=== PATIENT | female | born 1990 | race Caucasian/White ===

== ENCOUNTER 2019-01-26 19:44 | Emergency (ER) | payer OTHER ==
[2019-01-26] MEDS ORDERED: ONDANSETRON 4 MG/2 ML VIAL IVPUSH ONE (20:15)
--- NOTE | 2019-01-26 20:15 | PDOC ---
Rapid Medical Evaluation Time Seen by Provider: 01/26/19 20:12 Medical Evaluation: Allergies Allergy/AdvReac Type Severity Reaction Status Date / Time No Known Drug Allergies Allergy Verified 09/10/16 06:00 01/26/19 20:12 I performed a brief in-person evaluation of this patient. Chief complaint: Vomiting x several days, unable to tolerate fluids. No pv bleeding. , LMP 12/01. Pertinent physical exam findings: No abdominal tenderness. I have ordered the following: Basic labs, Zofran, Pepcid, IVF. Patient will proceed to the ED for further evaluation. Discharge Disposition - Diagnosis Hyperemesis - Referrals - Patient Instructions - Post Discharge Activity
[2019-01-26 20:16] VITALS: TEMP 98.2; BMI 26.9
[2019-01-26] MEDS ORDERED: FAMOTIDINE 20 MG/50 ML IVPB 20 MG in PREMIX 50 IVPB ONE (20:16)
[2019-01-26] MEDS ORDERED: SODIUM CHLORIDE 1,000 ML IV STA (20:16)
--- NOTE | 2019-01-26 20:49 | PDOC ---
History of Present Illness - General Chief Complaint: Nausea/Vomiting Stated Complaint: 2 MONTHS PERGNANT VOMITING Time Seen by Provider: 01/26/19 20:12 - History of Present Illness Initial Comments: 01/26/19 22:04 28F with no pmh, 2 month by LMP presents to the ed for 3 weeks of nausea/vomiting. Saw her OBGYN who prescribed unknown medication that the patient couldn't afford. LMP was 12/01/18. Patient denies headache, lightheadedness. Denies fever, chills. Denies chest pain, shortness of breath. Denies diarrhea, abdominal pain. Allergies: OB: Viola Montenegro Past History - Past Medical History Allergies/Adverse Reactions: Allergies Allergy/AdvReac Type Severity Reaction Status Date / Time No Known Drug Allergies Allergy Verified 01/27/19 00:22 Home Medications: Ambulatory Orders Vit Calc,Iron,Folic [ Vitamins] 1 each PO DAILY 09/10/16 Anemia: No Asthma: Yes Cancer: No Cardiac Disorders: No CVA: No COPD: No CHF: No Dementia: No Diabetes: No GI Disorders: No Disorders: No HTN: No Hypercholesterolemia: No Liver Disease: No Seizures: No Thyroid Disease: No - Surgical History Abdominal Surgery: No Appendectomy: No Cardiac Surgery: No Cholecystectomy: No Lung Surgery: No Neurologic Surgery: No Orthopedic Surgery: No - Reproductive History (#): 4 Para: 1 Therapeutic (s) & number: No Spontaneous : 2 - Immunization History Immunization Up to Date: Yes - Suicide/Smoking/Psychosocial Hx Smoking History: Never smoked Have you smoked in the past 12 months: No Hx Alcohol Use: No Drug/Substance Use Hx: No Substance Use Type: None Hx Substance Use Treatment: No Review of Systems - Review of Systems Able to Perform ROS?: Yes Is the patient limited Cypriot proficient: No Constitutional: No: Symptoms Reported HEENTM: No: Symptoms Reported Respiratory: No: Symptoms reported Cardiac (ROS): No: Symptoms Reported ABD/GI: Yes: See HPI : No: Symptoms Reported Musculoskeletal: No: Symptoms Reported Integumentary: No: Symptoms Reported All Other Systems: Reviewed and Negative *Physical Exam - Vital Signs Last Vital Signs Temp Pulse Resp BP Pulse Ox 98.2 F 129 H 20 105/84 98 01/26/19 20:13 01/26/19 20:13 01/26/19 20:13 01/26/19 20:13 01/26/19 20:13 - Physical Exam General Appearance: Yes: Nourished, Appropriately Dressed. No: Apparent Distress HEENT: positive: EOMI, LIVE, Normal ENT Inspection, Scleral Icterus (R), Scleral Icterus (L) Respiratory/Chest: positive: Lungs Clear, Normal Breath Sounds. negative: Chest Tender, Respiratory Distress Cardiovascular: positive: Regular Rhythm, S1, S2, Tachycardia Gastrointestinal/Abdominal: positive: Normal Bowel Sounds, Tender (URQ), Hepatomegaly Musculoskeletal: positive: Normal Inspection. negative: CVA Tenderness Integumentary: positive: Normal Color, Dry, Warm Neurologic: positive: Fully Oriented, Alert, Normal Mood/Affect, Normal Response , Motor Strength 02/11 ED Treatment Course - LABORATORY CBC & Chemistry Diagram: 01/26/19 20:00 01/26/19 20:00 Medical Decision Making - Medical Decision Making 01/26/19 22:08 28F 2 month , with vomiting, jaundice, elevated wbc, elevated liver enzymes and total bilirubin. - Hyperemesis gravidarum: Consistent with continuous vomiting and time of onset. Abnormal liver chemistries abnormal in 50% of patient with ALT higher than AST however bilirubin is usually normal and rarely exeeds 4. - Preeclampsia/HELPP: abdominal pain and elevated uric acid and liver enzymes are consistent with diagnosis but patient is not hypertensive (85% of cases) and usually onset is in 3rd trimester. Also and more importantly, platelets are WNL. - Intrahepatic cholestasis of : Patient does not exhibit pruritus which is the cardinal sign however she does have elevated bilirubin, liver enzymes and wbc. . - Acute fatty liver of : Consistent with signs and symptoms of nausea , vomiting and abdominal pain, elevated liver enzymes,Elevated uric acid, WBC but doesn't have decreased platelets or elevated ammonia. We will obtain ultrasound to confirm IUP and gallbladder US to r/o stones. 01/26/19 23:17 TVUS: viable IUP, 8 weeks old. GB US: inspissated gallbladder with sludge, completely opaque. Biliary sludge is common in and consistent with the patient's symptoms. Will consult GI. 01/26/19 23:21 Elevated PT/INR, elevated uric acid, negative ammonia and lipase Unclear diagnosis will multiple hepatic disease features. Spoke to Dr. John who suspected a passed gallstone. Recommended patient be transferred to facility able to care for high-risk . Patient chose [facility]. Spoke to ORALIA Valles attending at [facility]. Patient will be transferred ER to ER. *DC/Admit/Observation/Transfer Diagnosis at time of Disposition: Hyperemesis - Discharge Dispostion Disposition: TRANSFER ACUTE CARE/OTHER HOSP Condition at time of disposition: Guarded Decision to Admit order: No - Referrals Referrals: Viola Montenegro CNM [Primary Care Provider] - - Patient Instructions - Post Discharge Activity - Transfer to Acute Care Facility Receiving Facility: [facility].
[2019-01-26] MEDS ORDERED: PYRIDOXINE HCL 100 MG/1 ML VIAL IM ONE (20:55)
[2019-01-26] MEDS ORDERED: METOCLOPRAMIDE HCL INJECTION 10 MG/2 ML VIAL IVPUSH ONE (20:55)
[2019-01-26 20:56] LABS: BASO % 0.5 % (0-2.0); EOS % 0.4 % (0-4.5); HEMOGLOBIN 15.1 GM/dL (10.7-15.3); LYMPH % 12.8 % (8-40); MCH 28.2 pg (25.7-33.7); MCHC 34.3 g/dl (32.0-36.0); MEAN CELL VOLUME 82.2 fl (80-96); MONO % 9.1 % (3.8-10.2); NEUT % 77.2 % (42.8-82.8); PLATELET COUNT 345 K/MM3 (134-434); RBC 5.35 M/mm3 (3.60-5.2); RDW 13.1 % (11.6-15.6); WHITE BLOOD COUNT 13.5 K/mm3 (4.0-10.0)
[2019-01-26] MEDS ORDERED: METOCLOPRAMIDE HCL INJECTION 10 MG/2 ML VIAL ONE (21:12)
[2019-01-26] MEDS ORDERED: FAMOTIDINE 20 MG/50 ML IVPB 20 MG/50 ML MG IVPB ONE (21:12)
[2019-01-26 21:38] LABS: ALBUMIN 4.4 g/dl (3.4-5.0); ALK PHOS 93 U/L (45-117); ANION GAP 14 MMOL/L (8-16); BILIRUBIN,TOTAL 6.7 mg/dL (0.2-1); BLOOD UREA NITROGEN 14 mg/dL (7-18); CALCIUM 10.1 mg/dL (8.5-10.1); CHLORIDE 97 mmol/L (98-107); CO2 23 mmol/L (21-32); CREATININE 0.8 mg/dL (0.55-1.3); GLUCOSE,RANDOM 92 mg/dL (74-106); SGOT/AST 202 U/L (15-37); SGPT/ALT 397 U/L (13-61); SODIUM 134 mmol/L (136-145); TOT PROT 8.8 g/dl (6.4-8.2)
[2019-01-26 21:52] LABS: URINE APPEARANCE CLEAR; URINE BACTERIA 271.2 /hpf (NEGATIVE); URINE BILIRUBIN 3+ (NEGATIVE); URINE CASTS 17 /lpf (0-8); URINE COLOR DK YELLOW; URINE GLUCOSE (UA) NEGATIVE (NEGATIVE); URINE KETONE 4+ (NEGATIVE); URINE LEUK ESTERASE 1+ (NEGATIVE); URINE NITRITE POSITIVE (NEGATIVE); URINE PROTEIN 4+ (NEGATIVE); URINE RBC 3 /hpf (0-4); URINE WBC 7 /hpf (0-5)
--- NOTE | 2019-01-26 23:06 | PDOC ---
Documentation entered by Dirk Robledo SCRIBE, acting as scribe for Justin Watson MD. Justin Watson MD: This documentation has been prepared by the Venkat riggs Daniel, SCRIBE, under my direction and personally reviewed by me in its entirety. I confirm that the documentation accurately reflects all work, treatment, procedures, and medical decision making performed by me. Attending Attestation - Resident Resident Name: Daniel Lopes - ED Attending Attestation I have performed the following: I have examined & evaluated the patient, The case was reviewed & discussed with the resident, I agree w/resident's findings & plan, Exceptions are as noted - HPI HPI: 01/26/19 20:57 The patient is a 28 year old female, , @ 8 weeks by LMP, with a past medical history of asthma here today for evaluation of vomiting. She reports that she has had nausea and vomiting for the past 3 weeks. Endorses upper abdominal pain associated with the vomiting. Denies lower abdominal pain or cramps. Denies vaginal discharge/bleeding. Denies F/C. Pt also notes that her eyes have become yellow. Denies any rashes. Pt saw her OB who prescribed nausea medication that she has not filled. Patient denies headache, lightheadedness. Denies fever, chills. Denies chest pain, shortness of breath. Denies diarrhea. Allergies: OB: Viola Montenegro - Physicial Exam PE: 01/26/19 22:28 "GENERAL: Awake, alert, and fully oriented, in no acute distress. HEAD: No signs of trauma EYES: +sceral icterus, PERRLA, EOMI, ENT: Auricles normal inspection, hearing grossly normal, nares patent, oropharynx clear without exudates. Moist mucosa NECK: Nontender, no stepoffs, Normal ROM, supple, no lymphadenopathy, JVD, or masses LUNGS: Breath sounds equal, clear to auscultation bilaterally. No wheezes, and no crackles HEART: Regular rate and rhythm, normal S1 and S2, no murmurs, rubs or gallops ABDOMEN: + RUQ TTP, normoactive bowel sounds. No guarding, no rebound. No masses EXTREMITIES: Normal range of motion, no edema. No clubbing or cyanosis. No cords, erythema, or tenderness NEUROLOGICAL: Cranial nerves II through XII intact. 5/5 strength and sensation in all extremities, Normal speech, normal gait, normal cerebellar function SKIN: Warm, Dry, normal turgor, no rashes or lesions noted. - Medical Decision Making 01/26/19 22:28 28 F with N/V, abdominal pain, and jaundice. Will need to evaluate for hepatic/ biliary disease. Pt is only 8 weeks by LMP, making HELLP les likely. Possible cholestasis of . - Labs, UA, HCG - RUQ sono - TVUS - IVF, reglan 01/26/19 23:14 Labs notable for elevated bili + transaminitis US shows biliary sludge, no evidence of acute asia. No hepatic pathology. No dilated CBD. Suspect intrahepatic cholestasis of . Will consult Dr. Dior for management recs. 01/26/19 22:30 Dr. Ovi linton 01/27/19 00:16 Dr. Ovi linton again 01/27/19 00:47 Dr. Ovi linton again, still awaiting callback Will consult Dr. Mccann at this time for OB recs 01/27/19 00:[address] Mccann, who says cholestasis of is uncommon at 8 weeks. She recommends GI evaluation for primary GI process. I reviewed the labwork and ultrasound with her, and she does not believe there is any additional workup or intervention indicated from an OB standpoint. 01/27/19 01:[address] Dior, who recommends transfer to high-risk OB. Cannot rule out acute asia at this time. 01/27/19 01:32 Pt consented for transfer to [facility] Accepted by Dr. Weaver, doughmaker
[2019-01-26 23:56] LABS: INR 1.27 (0.83-1.09)
[2019-01-26 23:59] LABS: ACTIVATED PTT 27.8 SECONDS (25.2-36.5)
[2019-01-27 03:14] VITALS: BP 113/76; PULSE 100
--- NOTE | 2019-01-27 14:11 | EKG ---
Test Reason : Blood Pressure : / mmHG Vent. Rate : 120 BPM Atrial Rate : 120 BPM P-R Int : 166 ms QRS Dur : 074 ms QT Int : 312 ms P-R-T Axes : 058 075 -30 degrees QTc Int : 440 ms SINUS TACHYCARDIA POSSIBLE LEFT ATRIAL ENLARGEMENT T WAVE ABNORMALITY, CONSIDER INFERIOR ISCHEMIA T WAVE ABNORMALITY, CONSIDER ANTERIOR ISCHEMIA ABNORMAL ECG NO PREVIOUS ECGS AVAILABLE Confirmed by MD LIONEL, GERBER ([id number]) on 01/27/2019 2:11:34 PM Referred By: Confirmed By:GERBER FLOWERS MD
== END 2019-01-27 03:14 | disposition short-term general hospital (02) ==
LOC: JER 19:44
PROC: 3E023GC Introduction of Other Therapeutic Substance into Muscle, Percutaneous Approach (ICD-10-PCS; principal; 2019-01-26)
PROC: 3E0337Z Introduction of Electrolytic and Water Balance Substance into Peripheral Vein, Percutaneous Approach (ICD-10-PCS; 2019-01-26)
PROC: 3E033GC Introduction of Other Therapeutic Substance into Peripheral Vein, Percutaneous Approach (ICD-10-PCS; 2019-01-26)
PROC: 3E033GC Introduction of Other Therapeutic Substance into Peripheral Vein, Percutaneous Approach (ICD-10-PCS; 2019-01-26)
PROC: 3E033GC Introduction of Other Therapeutic Substance into Peripheral Vein, Percutaneous Approach (ICD-10-PCS; 2019-01-26)
DX: O26.891 Other specified pregnancy related conditions, first trimester (principal); O21.0 Mild hyperemesis gravidarum; O99.612 Diseases of the digestive system complicating pregnancy, second trimester; K92.89 Other specified diseases of the digestive system; R17 Unspecified jaundice; Z3A.08 8 weeks gestation of pregnancy
CPT/HCPCS: 36415; 76705-TC; 76801-TC; 80053; 81003; 82140; 83690; 83735; 84550; 84702; 85025; 85610; 85730; 93005; 93010; 96361; 96365; 96372; 96375; 99284-25; J7030

== ENCOUNTER 2019-02-11 11:31 | Emergency (ER) | payer OTHER ==
[2019-02-11 11:37] VITALS: BMI 29.0
[2019-02-11] MEDS ORDERED: FOLIC ACID INJECTION - 1 MG, THIAMINE HCL 100 MG, MULTIVIT INJECTION ADULT 10 ML in SOD... IVPB ONE (12:10)
[2019-02-11] MEDS ORDERED: METOCLOPRAMIDE HCL INJECTION 10 MG/2 ML VIAL IVPUSH ONE (12:12)
--- NOTE | 2019-02-11 12:12 | PDOC ---
History of Present Illness - General Chief Complaint: Nausea/Vomiting Stated Complaint: 9 WK PREG / VOMITING Time Seen by Provider: 02/11/19 11:43 - History of Present Illness Initial Comments: 02/11/19 12:21 28f 9 weeks presenting to the ed with intractable vomiting ever since she was discharged from [facility] 3 days ago, where she was treated for the same symptoms. She says that the IV medication worked well at the hospital and controller her nausea/vomiting, but as soon as she got home she resumed vomiting. Hasn't been able to eat or drink. She's had two admissions for hyperemesis gravidarum so far. All Ultrasounds so far have been confirming healthy . Denies vaginal bleeding or discharge. Past History - Past Medical History Allergies/Adverse Reactions: Allergies Allergy/AdvReac Type Severity Reaction Status Date / Time No Known Drug Allergies Allergy Verified 02/11/19 11:37 Home Medications: Ambulatory Orders Vit Calc,Iron,Folic [ Vitamins] 1 each PO DAILY 09/10/16 Anemia: No Asthma: Yes Cancer: No Cardiac Disorders: No CVA: No COPD: No CHF: No Dementia: No Diabetes: No GI Disorders: No Disorders: No HTN: No Hypercholesterolemia: No Liver Disease: No Seizures: No Thyroid Disease: No - Surgical History Abdominal Surgery: No Appendectomy: No Cardiac Surgery: No Cholecystectomy: No Lung Surgery: No Neurologic Surgery: No Orthopedic Surgery: No - Reproductive History (#): 4 Para: 1 Therapeutic (s) & number: No Spontaneous : 2 - Immunization History Immunization Up to Date: Yes - Suicide/Smoking/Psychosocial Hx Smoking History: Never smoked Have you smoked in the past 12 months: No Hx Alcohol Use: No Drug/Substance Use Hx: No Substance Use Type: None Hx Substance Use Treatment: No Review of Systems - Review of Systems Able to Perform ROS?: Yes Is the patient limited Grenadian proficient: No Constitutional: No: Symptoms Reported HEENTM: No: Symptoms Reported Respiratory: No: Symptoms reported Cardiac (ROS): No: Symptoms Reported ABD/GI: Yes: See HPI : No: Symptoms Reported Musculoskeletal: No: Symptoms Reported Integumentary: No: Symptoms Reported Neurological: No: Symptoms reported *Physical Exam - Vital Signs Last Vital Signs Temp Pulse Resp BP Pulse Ox 98 F 121 H 20 139/88 98 02/11/19 11:33 02/11/19 11:33 02/11/19 11:33 02/11/19 11:33 02/11/19 11:33 - Physical Exam General Appearance: Yes: Appropriately Dressed, Moderate Distress HEENT: positive: EOMI, LIVE, Normal ENT Inspection Respiratory/Chest: positive: Lungs Clear, Normal Breath Sounds. negative: Chest Tender, Respiratory Distress Cardiovascular: positive: Regular Rhythm, Tachycardia Gastrointestinal/Abdominal: positive: Normal Bowel Sounds, Tender (epigastric), Soft, Other (gravid abdomen) Musculoskeletal: positive: Normal Inspection. negative: CVA Tenderness Extremity: positive: Delayed Capillary Refill Integumentary: positive: Normal Color, Warm Neurologic: positive: Fully Oriented, Alert, Normal Mood/Affect, Normal Response ED Treatment Course - LABORATORY CBC & Chemistry Diagram: 02/11/19 12:15 02/11/19 12:15 Medical Decision Making - Medical Decision Making 02/11/19 12:29 Likely intractable hyperemesis gravidarum vs cholecystitis vs hepatic liver disease of preg. This patient was seen by me 01/30 and despite the liver enzyme abnormality, jaundice and elevated uric acid, her work up at [facility] was apparently negative. Will treat for intractable HG with Reglan and rehydrate with D5LR and banana bags 02/11/19 14:57 Patient feels much better after treatment, wants to try to eat. Consulted qwith Dr. Prieto who advised the patient gets discharged and present to clinic tomorrow morning to arrange for home visit by OBGYN nurses to give her IV fluids and antiemetics. Will give the patient 3rd liter of fluid D5LR Po challenge and discharge *DC/Admit/Observation/Transfer Diagnosis at time of Disposition: Hyperemesis gravidarum - Discharge Dispostion Disposition: HOME Condition at time of disposition: Improved Decision to Admit order: No - Referrals Referrals: Viola Montenegro CNM [Primary Care Provider] - - Patient Instructions Printed Discharge Instructions: DI for Hyperemesis Gravidarum Additional Instructions: Present to OBGYN clinic tomorrow morning and arrange for nurse home visit. Come back to the emergency department for any new, worsening or concerning symptoms. - Post Discharge Activity
[2019-02-11] MEDS ORDERED: DEXTROSE 5%-LACTATED RINGERS 1,000 ML IV SCH ×2 (12:15→15:00)
[2019-02-11] MEDS ORDERED: METOCLOPRAMIDE HCL INJECTION 10 MG/2 ML VIAL ONE (12:25)
--- NOTE | 2019-02-11 12:44 | PDOC ---
Documentation entered by Lisa Esparza SCRIBE, acting as scribe for Brit Carter MD. Brit Carter MD: This documentation has been prepared by the scribe, Lisa Esparza SCRIBE, under my direction and personally reviewed by me in its entirety. I confirm that the documentation accurately reflects all work, treatment, procedures, and medical decision making performed by me. Attending Attestation - Resident Resident Name: Daniel Lopes - ED Attending Attestation I have performed the following: I have examined & evaluated the patient, The case was reviewed & discussed with the resident, I agree w/resident's findings & plan, Exceptions are as noted - HPI HPI: 02/11/19 12:22 The patient is a 28-year-old female who is 9 weeks , A2, with a past medical history asthma, who presents to the ED for 4 days of nausea and vomiting. The patient was seen at [facility] 4 days ago, was found to be dehydrated, and was admitted for IV fluids. The patient's symptoms recurred after being released from the hospital. She reports that she is unable to tolerate any fluids or solids at home and has lost a substantial amount of weight. Last meal was 4 days ago. Patient has been taking Zofran with no improvement of her symptoms. The patient denies any fevers, chills, diarrhea, constipation, or abdominal pain. Denies any palpitations, chest pain, or shortness of breath. Denies any dysuria, frequency, urgency, hesitancy, or hematuria. Denies any vaginal bleeding or discharge. Allergies: NKDA Social History: None reported. Surgical History: None reported. NETWORK OPERATIONS PROJECT MANAGER: Viola Montenegro CNM ([address] - Physicial Exam PE: GENERAL: Awake, alert, and fully oriented, in no acute distress HEAD: No signs of trauma EYES: PERRLA, EOMI, sclera anicteric, conjunctiva clear ENT: Auricles normal inspection, hearing grossly normal, nares patent, oropharynx clear without exudates. Dry mucosa NECK: Normal ROM, supple, no lymphadenopathy, JVD, or masses LUNGS: Breath sounds equal, clear to auscultation bilaterally. No wheezes, and no crackles HEART: Tachycardic, normal S1 and S2, no murmurs, rubs or gallops ABDOMEN: Soft, nontender, normoactive bowel sounds. No guarding, no rebound. No masses EXTREMITIES: Normal range of motion, no edema. No clubbing or cyanosis. No cords, erythema, or tenderness NEUROLOGICAL: Cranial nerves II through XII grossly intact. Normal speech, normal gait. Motor and sensation intact SKIN: Warm, Dry, normal turgor, no rashes or lesions noted. - Medical Decision Making Pt with hyperemesis, significant weight loss since the beginning of her (she states she started at a weight over 200 lbs). Will require IV hydration and admission. Will consult with stud master/mistress, as she continues to fail outpatient treatment.
[2019-02-11 12:56] LABS: BASO % 0.4 % (0-2.0); HEMATOCRIT 41.3 % (32.4-45.2); HEMOGLOBIN 14.1 GM/dL (10.7-15.3); LYMPH % 11.7 % (8-40); MCH 27.7 pg (25.7-33.7); MCHC 34.1 g/dl (32.0-36.0); MEAN CELL VOLUME 81.3 fl (80-96); MEAN PLT VOLUME 8.4 fl (7.5-11.1); MONO % 4.1 % (3.8-10.2); NEUT % 83.8 % (42.8-82.8); PLATELET COUNT 325 K/MM3 (134-434); RBC 5.07 M/mm3 (3.60-5.2); RDW 13.3 % (11.6-15.6)
[2019-02-11 13:48] LABS: EPI CELLS 4.1 /HPF (0-5/HPF); PH,URINE 5.5 (5.0-8.0); URINE APPEARANCE CLEAR; URINE BACTERIA 205.1 /hpf (NEGATIVE); URINE BILIRUBIN 2+ (NEGATIVE); URINE CASTS 7 /lpf (0-8); URINE COLOR DK YELLOW; URINE GLUCOSE (UA) 3+ (NEGATIVE); URINE KETONE 4+ (NEGATIVE); URINE LEUK ESTERASE NEGATIVE (NEGATIVE); URINE NITRITE NEGATIVE (NEGATIVE); URINE PROTEIN 3+ (NEGATIVE); URINE RBC 6 /hpf (0-4); URINE WBC 4 /hpf (0-5)
[2019-02-11 14:37] LABS: ALBUMIN 4.5 g/dl (3.4-5.0); ALK PHOS 80 U/L (45-117); ANION GAP 12 MMOL/L (8-16); BILIRUBIN,TOTAL 2.9 mg/dL (0.2-1); BLOOD UREA NITROGEN 9 mg/dL (7-18); CALCIUM 10.2 mg/dL (8.5-10.1); CHLORIDE 101 mmol/L (98-107); CO2 22 mmol/L (21-32); CREATININE 0.6 mg/dL (0.55-1.3); GLUCOSE,RANDOM 80 mg/dL (74-106); MAGNESIUM 2.1 mg/dL (1.8-2.4); POTASSIUM 4.1 mmol/L (3.5-5.1); SGOT/AST 103 U/L (15-37); SGPT/ALT 190 U/L (13-61); SODIUM 134 mmol/L (136-145)
[2019-02-11 15:15] LABS: URIC ACID 6.6 mg/dL (2.6-7.2)
[2019-02-11 15:24] VITALS: BP 118/74; PULSE 78; TEMP 98.2
[2019-02-11] MEDS ORDERED: ALBUTEROL SO4 2.5/IPRATROPIUM 0.5 INH SOL 3 ML VIAL.NEB. NEB ONE (15:34)
== END 2019-02-11 16:00 | disposition home or self-care (01) ==
LOC: JER 11:31
PROC: 3E033GC Introduction of Other Therapeutic Substance into Peripheral Vein, Percutaneous Approach (ICD-10-PCS; principal; 2019-02-11)
PROC: 3E0337Z Introduction of Electrolytic and Water Balance Substance into Peripheral Vein, Percutaneous Approach (ICD-10-PCS; 2019-02-11)
PROC: 3E0337Z Introduction of Electrolytic and Water Balance Substance into Peripheral Vein, Percutaneous Approach (ICD-10-PCS; 2019-02-11)
PROC: 3E033GC Introduction of Other Therapeutic Substance into Peripheral Vein, Percutaneous Approach (ICD-10-PCS; 2019-02-11)
DX: O26.891 Other specified pregnancy related conditions, first trimester (principal); O21.0 Mild hyperemesis gravidarum; Z3A.09 9 weeks gestation of pregnancy
CPT/HCPCS: 36415; 80053; 81003; 83735; 84550; 85025; 87086; 96365; 96366; 96375; 99283-25; J7030

== ENCOUNTER 2019-02-16 16:24 | Emergency (ER) | payer OTHER ==
[2019-02-16 16:34] VITALS: BMI 29.0
--- NOTE | 2019-02-16 16:34 | PDOC ---
Rapid Medical Evaluation Medical Evaluation: Allergies Allergy/AdvReac Type Severity Reaction Status Date / Time No Known Drug Allergies Allergy Verified 02/11/19 11:37 I have performed a brief in-person evaluation of this patient. The patient presents with a chief complaint of: Currently 2 months , c/ o persistent NBNB emesis since start of ; was seen 5 days ago for similar sxs; saw Dr. Saldana after being discharged from ED and states was supposed to get a nurse to come to her house to give her fluids, but that has not yet been approved; denies vaginal bleeding; of note, patient had pelvic ultrasound 01/2019 which confirmed IUP Pertinent physical exam findings: In NAD I have ordered the following: Labs, IVF, Zofran The patient will proceed to the ED for further evaluation. 02/16/19 16:32
[2019-02-16] MEDS ORDERED: ONDANSETRON 4 MG/2 ML VIAL IVPUSH ONE (16:35)
[2019-02-16] MEDS ORDERED: SODIUM CHLORIDE 1,000 ML IV STA (16:35)
[2019-02-16 16:55] LABS: BASO % 0.6 % (0-2.0); EOS % 0.6 % (0-4.5); HEMATOCRIT 38.9 % (32.4-45.2); HEMOGLOBIN 13.3 GM/dL (10.7-15.3); LYMPH % 31.4 % (8-40); MCH 27.8 pg (25.7-33.7); MCHC 34.2 g/dl (32.0-36.0); MEAN CELL VOLUME 81.1 fl (80-96); MEAN PLT VOLUME 8.4 fl (7.5-11.1); MONO % 7.9 % (3.8-10.2); NEUT % 59.5 % (42.8-82.8); PLATELET COUNT 295 K/MM3 (134-434); RBC 4.79 M/mm3 (3.60-5.2); RDW 13.8 % (11.6-15.6); WHITE BLOOD COUNT 7.1 K/mm3 (4.0-10.0)
[2019-02-16 17:39] LABS: ALBUMIN 4.1 g/dl (3.4-5.0); BILIRUBIN,TOTAL 1.5 mg/dL (0.2-1); CALCIUM 9.4 mg/dL (8.5-10.1); CREATININE 0.5 mg/dL (0.55-1.3); POTASSIUM 3.4 mmol/L (3.5-5.1)
[2019-02-16] MEDS ORDERED: ONDANSETRON 4 MG/2 ML VIAL ONE (17:39)
[2019-02-16] MEDS ORDERED: DEXTROSE 5%-LACTATED RINGERS 1,000 ML IV SCH ×2 (17:45→19:30)
--- NOTE | 2019-02-16 17:53 | PDOC ---
Documentation entered by Jessee Montenegro SCRIBE, acting as scribe for Brit Carter MD. Brit Carter MD: This documentation has been prepared by the gabbiibe, Jessee Montenegro SCRIBE, under my direction and personally reviewed by me in its entirety. I confirm that the documentation accurately reflects all work, treatment, procedures, and medical decision making performed by me. Attending Attestation - Resident Resident Name: Dontrell Greenberg - ED Attending Attestation I have performed the following: I have examined & evaluated the patient, The case was reviewed & discussed with the resident, I agree w/resident's findings & plan, Exceptions are as noted - HPI HPI: 02/16/19 17:43 The patient is a 28 year old female (A2), 11 weeks (based on prior ultrasound in ED 3 weeks ago), who presents to the emergency department with persistent nausea and vomiting for a few weeks. The patient was seen in the ED recently with same complaints by which she was sent home with zofran and a follow up with her OB regarding home infusion. The patient states that she saw her OB yesterday for assessment and awaiting approval for infusion treatment.The patient returned back to the ED today secondary to continued worsening symptoms. She states that she was given 13 tablets of zofran by which she took one a day. The patient reports some associated back pain but denies any other symptoms at time of exam. She denies any other complaints. - Physicial Exam PE: GENERAL: Awake, alert, and fully oriented, in no acute distress HEAD: No signs of trauma EYES: PERRLA, EOMI, sclera anicteric, conjunctiva clear ENT: Auricles normal inspection, hearing grossly normal, nares patent, oropharynx clear without exudates. Dry mucosa NECK: Normal ROM, supple, no lymphadenopathy, JVD, or masses LUNGS: Breath sounds equal, clear to auscultation bilaterally. No wheezes, and no crackles HEART: Regular rate and rhythm, normal S1 and S2, no murmurs, rubs or gallops ABDOMEN: Soft, nontender, normoactive bowel sounds. No guarding, no rebound. No masses EXTREMITIES: Normal range of motion, no edema. No clubbing or cyanosis. No cords, erythema, or tenderness NEUROLOGICAL: Cranial nerves II through XII grossly intact. Normal speech, normal gait. Motor and sensation intact SKIN: Warm, Dry, normal turgor, no rashes or lesions noted. - Medical Decision Making Pt currently 11 WGA, has been suffering from hyperemesis during her . She is currently in process of setting up for home infusions for the vomiting, awaiting callback. Will give IV fluids and zofran in ED, offer a PO challenge after.
--- NOTE | 2019-02-16 18:39 | PDOC ---
History of Present Illness - General Chief Complaint: Nausea/Vomiting Stated Complaint: vomiting, 8 wks Time Seen by Provider: 02/16/19 16:30 History Source: Patient Exam Limitations: No Limitations - History of Present Illness Initial Comments: 02/16/19 17:51 28 yo female A, currently 11 weeks , pmh asthma and chronic NB vomiting since the beginning of her current presents to the ED with continued NB/NB vomiting. Pt states she responds to zofran but has run out of the medication prescribed by the ED. Pt states she saw Dr. Prieto yesterday, no zofran ordered and was told she will receive a call for home infusions of fluids but was concerned about not getting called as yet. Pt admits to greater than 15 episodes of NB but green vomiting and mild right flank pain today. Also states PO intake is severely low due to poor appetite and worried about vomiting food. Denies pain on urination, increased frequency or blood in urine, vaginal bleeding/discharge, recent travel, sick contacts, changes in diet, F/C, CP, SOB. Past History - Past Medical History Allergies/Adverse Reactions: Allergies Allergy/AdvReac Type Severity Reaction Status Date / Time No Known Drug Allergies Allergy Verified 02/16/19 16:34 Home Medications: Ambulatory Orders Fluticasone Propionate [Flovent Diskus] 50 mcg IH PRN PRN 02/16/19 Metoclopramide HCl 10 mg PO TID 02/16/19 Montelukast Sodium [Singulair] 10 mg PO DAILY 02/16/19 Anemia: No Asthma: Yes Cancer: No Cardiac Disorders: No CVA: No COPD: No CHF: No Dementia: No Diabetes: No GI Disorders: No Disorders: No HTN: No Hypercholesterolemia: No Liver Disease: No Seizures: No Thyroid Disease: No - Surgical History Abdominal Surgery: No Appendectomy: No Cardiac Surgery: No Cholecystectomy: No Lung Surgery: No Neurologic Surgery: No Orthopedic Surgery: No - Reproductive History (#): 4 Para: 1 Therapeutic (s) & number: No Spontaneous : 2 - Immunization History Immunization Up to Date: Yes - Suicide/Smoking/Psychosocial Hx Smoking History: Never smoked Have you smoked in the past 12 months: No Information on smoking cessation initiated: No Hx Alcohol Use: No Drug/Substance Use Hx: No Substance Use Type: None Hx Substance Use Treatment: No *Physical Exam - Vital Signs Last Vital Signs Temp Pulse Resp BP Pulse Ox 97.8 F 103 H 18 106/80 98 02/16/19 16:31 02/16/19 16:31 02/16/19 16:31 02/16/19 16:31 02/16/19 16:31 ED Treatment Course - LABORATORY CBC & Chemistry Diagram: 02/16/19 16:44 02/16/19 16:44 - ADDITIONAL ORDERS Additional order review: Laboratory Results 02/16/19 16:44 Sodium 136 Potassium 3.4 L Chloride 105 Carbon Dioxide 18 L Anion Gap 13 BUN 6 L Creatinine 0.5 L Est GFR (CKD-EPI)AfAm 153.73 Est GFR (CKD-EPI)NonAf 132.64 Random Glucose 73 L Calcium 9.4 Total Bilirubin 1.5 H AST 47 H ALT 219 H Alkaline Phosphatase 85 Total Protein 8.0 Albumin 4.1 02/16/19 16:44 RBC 4.79 MCV 81.1 MCHC 34.2 RDW 13.8 MPV 8.4 Neutrophils % 59.5 D Lymphocytes % 31.4 D Monocytes % 7.9 D Eosinophils % 0.6 D Basophils % 0.6 - Medications Given in the ED: ED Medications Discontinued Medications Generic Name Dose Route Start Last Admin Trade Name Freq PRN Reason Stop Dose Admin Sodium Chloride 1,000 mls @ 1,000 mls/hr 02/16/19 16:35 02/16/19 16:44 Normal Saline - IV 02/16/19 17:34 1,000 mls/hr ASDIR STA Administration Ondansetron HCl 4 mg 02/16/19 16:35 02/16/19 17:43 Zofran Injection IVPUSH 02/16/19 16:36 4 mg ONCE ONE Administration Medical Decision Making - Medical Decision Making 02/16/19 18:40 Bedside US shows live single IUP FHR 173 Pt receiving 2L D5LR and zofran Pt sitting up in bed after fluids and zofran, not currently nauseas, drinking and eating without vomiting Pt UA pending UA and will likely be DC home if normal and pt continues to be asymptomatic. Pt will be DC with zofran PO Q8H for 1 month and [employer] follow up *DC/Admit/Observation/Transfer - Referrals Referrals: Theo Prieto MD [Primary Care Provider] - - Patient Instructions - Post Discharge Activity
[2019-02-16 18:49] LABS: EPI CELLS 8.7 /HPF (0-5/HPF); PH,URINE 5.5 (5.0-8.0); URINE APPEARANCE CLOUDY; URINE BACTERIA 763.4 /hpf (NEGATIVE); URINE BILIRUBIN 1+ (NEGATIVE); URINE CASTS 37 /lpf (0-8); URINE COLOR DK YELLOW; URINE GLUCOSE (UA) NEGATIVE (NEGATIVE); URINE KETONE 4+ (NEGATIVE); URINE LEUK ESTERASE 1+ (NEGATIVE); URINE NITRITE NEGATIVE (NEGATIVE); URINE PROTEIN 2+ (NEGATIVE); URINE WBC 54 /hpf (0-5)
[2019-02-16 19:55] LABS: URINE RBC 4.2 /hpf (0-4)
--- NOTE | 2019-02-16 21:16 | PDOC ---
*Physical Exam - Vital Signs Last Vital Signs Temp Pulse Resp BP Pulse Ox 97.8 F 103 H 18 106/80 98 02/16/19 16:31 02/16/19 16:31 02/16/19 16:31 02/16/19 16:31 02/16/19 16:31 ED Treatment Course - LABORATORY CBC & Chemistry Diagram: 02/16/19 16:44 02/16/19 16:44 - ADDITIONAL ORDERS Additional order review: Laboratory Results 02/16/19 02/16/19 18:02 16:44 Sodium 136 Potassium 3.4 L Chloride 105 Carbon Dioxide 18 L Anion Gap 13 BUN 6 L Creatinine 0.5 L Est GFR (CKD-EPI)AfAm 153.73 Est GFR (CKD-EPI)NonAf 132.64 Random Glucose 73 L Calcium 9.4 Total Bilirubin 1.5 H AST 47 H ALT 219 H Alkaline Phosphatase 85 Total Protein 8.0 Albumin 4.1 Urine Color Dk yellow Urine Appearance Cloudy Urine pH 5.5 Ur Specific Murphy 1.029 Urine Protein 2+ H Urine Glucose (UA) Negative Urine Ketones 4+ H Urine Blood Negative Urine Nitrite Negative Urine Bilirubin 1+ H Urine Urobilinogen 1.0 Ur Leukocyte Esterase 1+ H Urine WBC (Auto) 54 Urine RBC (Auto) 4.2 Urine Casts (Auto) 37 U Epithel Cells (Auto) 8.7 Urine Bacteria (Auto) 763.4 02/16/19 16:44 RBC 4.79 MCV 81.1 MCHC 34.2 RDW 13.8 MPV 8.4 Neutrophils % 59.5 D Lymphocytes % 31.4 D Monocytes % 7.9 D Eosinophils % 0.6 D Basophils % 0.6 - Medications Given in the ED: ED Medications Discontinued Medications Generic Name Dose Route Start Last Admin Trade Name Freq PRN Reason Stop Dose Admin Sodium Chloride 1,000 mls @ 1,000 mls/hr 02/16/19 16:35 02/16/19 16:44 Normal Saline - IV 02/16/19 17:34 1,000 mls/hr ASDIR STA Administration Ondansetron HCl 4 mg 02/16/19 16:35 02/16/19 17:43 Zofran Injection IVPUSH 02/16/19 16:36 4 mg ONCE ONE Administration Medical Decision Making - Medical Decision Making 02/16/19 21:07 Sign out received from Dr Greenberg. Gibran Botello is a 28yo , currently 11wks , who presents with persistent vomiting throughout her current . ED course was notable for unremarkable labs. Bedside US completed showing single IUP. Given 2L IVF for rehydration as she was tachycardic on arrival. - UA sent, now completed, shows likely UTI w/ nearly 800 bacteria and 1+ leuk esterase. - Will reassess, likely d/c home if able to tolerate PO intake. 02/16/19 21:16 - Able to drink water w/o vomiting - Will d/c home with abx for UTI. Will follow up with Dr Prieto. Discussed with Dr Holguin. Jess Baer PGY1 *DC/Admit/Observation/Transfer Diagnosis at time of Disposition: Hyperemesis gravidarum - Discharge Dispostion Disposition: HOME Condition at time of disposition: Stable - Prescriptions Prescriptions: Nitrofurantoin Monohyd/M-Cryst [Macrobid -] 100 mg PO BID #10 capsule Ondansetron HCl [Zofran] 4 mg PO TID #90 tablet - Referrals Referrals: Theo Prieto MD [Primary Care Provider] - - Patient Instructions Printed Discharge Instructions: DI for Hyperemesis Gravidarum Additional Instructions: Discharge Instructions: You were seen in the ED for nausea and vomiting in . You had blood tests, and these did not show any electrolyte abnormalities or significant dehydration. You have been prescribed Zofran for your nausea. Please take as needed as directed. Your urine test showed bacteria. You have been prescribed an antibiotic called Macrobid (nitrofurantoin). Please take this twice daily until the entire prescription is completed. Follow up with Dr Prieto as directed. Seek immediate medical care if you have worsening of your symptoms, you are unable to stay hydrated, or you have any other medical emergency. - Post Discharge Activity
[2019-02-16 21:46] VITALS: BP 126/78; PULSE 88; TEMP 98.5
== END 2019-02-16 21:31 | disposition home or self-care (01) ==
LOC: JER 16:24
PROC: BY49ZZZ Ultrasonography of First Trimester, Single Fetus (ICD-10-PCS; principal; 2019-02-16)
PROC: 3E0337Z Introduction of Electrolytic and Water Balance Substance into Peripheral Vein, Percutaneous Approach (ICD-10-PCS; 2019-02-16)
PROC: 3E033GC Introduction of Other Therapeutic Substance into Peripheral Vein, Percutaneous Approach (ICD-10-PCS; 2019-02-16)
DX: O26.891 Other specified pregnancy related conditions, first trimester (principal); O21.0 Mild hyperemesis gravidarum; Z3A.11 11 weeks gestation of pregnancy
CPT/HCPCS: 36415; 76801-TC; 80053; 81003; 85025; 87086; 96361; 96374; 99285-25; J7030

== ENCOUNTER 2019-02-22 15:21 | Emergency (ER) | payer OTHER ==
[2019-02-22] MEDS ORDERED: ONDANSETRON 4 MG/2 ML VIAL IVPUSH ONE (15:30)
--- NOTE | 2019-02-22 15:30 | PDOC ---
Rapid Medical Evaluation Medical Evaluation: Allergies Allergy/AdvReac Type Severity Reaction Status Date / Time No Known Drug Allergies Allergy Verified 02/16/19 16:34 I have performed a brief in-person evaluation of this patient. The patient presents with a chief complaint of: Hx of asthma (hospitalized once , never intubated) currently 2 months presents for asthma exacerbation from yesterday; also unable to eat anything (having intractable vomiting) and unable to keep down liquids either (seen in the ER recently for same complaint) Pertinent physical exam findings: Appears slightly tachypneic; no obvious wheezing noted I have ordered the following: Labs, EKG, duonebs, IVF The patient will proceed to the ED for further evaluation. 02/22/19 15:25 Discharge Disposition - Discharge Dispostion Condition at time of disposition: Stable - Referrals - Patient Instructions - Post Discharge Activity
[2019-02-22 15:31] VITALS: BMI 20.9
[2019-02-22] MEDS ORDERED: DEXTROSE 5%-LACTATED RINGERS 1,000 ML IV SCH (15:45)
--- NOTE | 2019-02-22 16:00 | EKG ---
Test Reason : Blood Pressure : / mmHG Vent. Rate : 087 BPM Atrial Rate : 087 BPM P-R Int : 164 ms QRS Dur : 076 ms QT Int : 368 ms P-R-T Axes : 043 055 017 degrees QTc Int : 442 ms NORMAL SINUS RHYTHM ABNORMAL ECG WHEN COMPARED WITH ECG OF 26-JAN-2019 20:13, T WAVE INVERSION LESS EVIDENT IN INFERIOR LEADS NONSPECIFIC T WAVE ABNORMALITY NO LONGER EVIDENT IN LATERAL LEADS Confirmed by CHEYENNE ROBLES, JAZMÍN ([id number]) on 02/22/2019 4:00:05 PM Referred By: Confirmed By:JAZMÍN QUINN MD
[2019-02-22 16:14] LABS: BASO % 0.3 % (0-2.0); EOS % 0.4 % (0-4.5); HEMATOCRIT 41.4 % (32.4-45.2); HEMOGLOBIN 14.3 GM/dL (10.7-15.3); LYMPH % 24.3 % (8-40); MCHC 34.6 g/dl (32.0-36.0); MEAN CELL VOLUME 80.9 fl (80-96); MEAN PLT VOLUME 9.1 fl (7.5-11.1); MONO % 10.3 % (3.8-10.2); NEUT % 64.7 % (42.8-82.8); PLATELET COUNT 284 K/MM3 (134-434); RBC 5.12 M/mm3 (3.60-5.2); WHITE BLOOD COUNT 7.1 K/mm3 (4.0-10.0)
[2019-02-22] MEDS: ALBUTEROL SO4 2.5/IPRATROPIUM 0.5 INH SOL 3 ML VIAL.NEB. NEB SCH ×3 (16:45→17:40)
[2019-02-22] MEDS ORDERED: ALBUTEROL SO4 2.5/IPRATROPIUM 0.5 INH SOL 3 ML VIAL.NEB. NEB ONE ×2 (16:47→17:12)
[2019-02-22] MEDS ORDERED: ONDANSETRON 4 MG/2 ML VIAL ONE ×2 (16:48→22:46)
[2019-02-22 16:51] LABS: ALBUMIN 3.9 g/dl (3.4-5.0); BILIRUBIN,TOTAL 2.8 mg/dL (0.2-1); CALCIUM 9.4 mg/dL (8.5-10.1); CREATININE 0.5 mg/dL (0.55-1.3); POTASSIUM 3.5 mmol/L (3.5-5.1); TOT PROT 7.9 g/dl (6.4-8.2)
[2019-02-22] MEDS ORDERED: SODIUM CHLORIDE 0.9% 500 ML INFUS.BAG IV ONE (16:58)
--- NOTE | 2019-02-22 16:58 | PDOC ---
History of Present Illness - General Chief Complaint: Nausea/Vomiting Stated Complaint: ASTHMA Time Seen by Provider: 02/22/19 15:26 - History of Present Illness Initial Comments: Gibran Botello is a 28yo , currently 12wks , who presents to the ED for significant SOB that she states is due to asthma exacerbation. She also reports continued severe nausea/vomiting that has only been somewhat improved with medications at home; she has been seen in the ED several times for hyperemesis. Ms Botello states that she was told during her last ED visit that she was getting a month's worth of medication for home, but she says that the pharmacy would only give her 13 tablets and said that she needed a new prescription. It is unclear why she was not able to get the entire prescription, but she did call Dr Prieto for more medication. She also had an appointment scheduled with him this morning but was feeling ill so came to the ED instead. She says that yesterday she started feeling very short of breath, which happens every spring and summer due to her asthma, but she has had no improvement with albuterol. The SOB is the main reason she is here today, but she does also endorse continuing vomiting after she tries to drink anything. She reports being unable to eat anything at all, stating that the smell of food increases her nausea. She denies any additional new symptoms including fevers, sick contacts, diarrhea , abdominal pain, dysuria, or vaginal discharge/bleeding. Past History - Past Medical History Allergies/Adverse Reactions: Allergies Allergy/AdvReac Type Severity Reaction Status Date / Time No Known Drug Allergies Allergy Verified 02/16/19 16:34 Home Medications: Ambulatory Orders Fluticasone Propionate [Flovent Diskus] 50 mcg IH PRN PRN 02/16/19 Metoclopramide HCl 10 mg PO TID 02/16/19 Montelukast Sodium [Singulair] 10 mg PO DAILY 02/16/19 Nitrofurantoin Monohyd/M-Cryst [Macrobid -] 100 mg PO BID #10 capsule 02/16/19 Ondansetron HCl [Zofran] 4 mg PO TID #90 tablet 02/16/19 Anemia: No Asthma: Yes Cancer: No Cardiac Disorders: No CVA: No COPD: No CHF: No Dementia: No Diabetes: No GI Disorders: No Disorders: No HTN: No Hypercholesterolemia: No Liver Disease: No Seizures: No Thyroid Disease: No - Surgical History Abdominal Surgery: No Appendectomy: No Cardiac Surgery: No Cholecystectomy: No Lung Surgery: No Neurologic Surgery: No Orthopedic Surgery: No - Reproductive History (#): 4 Para: 1 Therapeutic (s) & number: No Spontaneous : 2 - Immunization History Immunization Up to Date: Yes - Suicide/Smoking/Psychosocial Hx Smoking History: Never smoked Have you smoked in the past 12 months: No Information on smoking cessation initiated: No Hx Alcohol Use: No Drug/Substance Use Hx: No Substance Use Type: None Hx Substance Use Treatment: No Review of Systems - Review of Systems Comments:: General: No fevers, no chills, no weight or appetite change, no malaise HEENT: No changes in vision, no changes in hearing, no congestion, no sore throat CV: No chest pain, no palpitations, no LE edema Pulm: +SOB, no cough, no wheezing GI: +hyperemesis : No frequency, no urgency, no dysuria Musc: No back pain, no joint swelling, no recent injury Skin: No rash, no lesions, no erythema Endo: No excessive thirst, no heat/cold intolerance Heme: No unusual bruising or bleeding, no swollen glands Neuro: No syncope, no numbness/tingling, no focal weakness Vasc: No claudication Psych: No recent change in mood, no SI or HI *Physical Exam - Vital Signs Last Vital Signs Temp Pulse Resp BP Pulse Ox 98.6 F 124 H 18 118/80 100 02/22/19 15:28 02/22/19 15:28 02/22/19 15:28 02/22/19 15:28 02/22/19 15:28 - Physical Exam Comments: General: Comfortable, no acute distress HEENT: PERRL, EOMI, MMM, voice normal Cards: Tachycardic, regular, no murmur appreciated Pulm: Comfortable on room air, clear to auscultation bilaterally Abd: Soft, nontender, nondistended Ext: Atraumatic. No LE edema. ROM intact. Vasc: Extremities WWP. Skin: Normal color, no rashes or lesions Neuro: A&Ox3, CN grossly intact, normal speech, motor/sensory grossly intact and symmetric Psych: Mood appropriate to situation ED Treatment Course - LABORATORY CBC & Chemistry Diagram: 02/22/19 15:51 02/22/19 15:51 - ADDITIONAL ORDERS Additional order review: 02/22/19 15:51 RBC 5.12 MCV 80.9 MCHC 34.6 RDW 14.0 MPV 9.1 Neutrophils % 64.7 Lymphocytes % 24.3 D Monocytes % 10.3 H Eosinophils % 0.4 Basophils % 0.3 Medical Decision Making - Medical Decision Making 02/22/19 16:35 Gibran Botello is a 28yo , currently 12wks , who presents to the ED for significant SOB that she states is due to asthma exacerbation. She also reports continued severe nausea/vomiting that has only been somewhat improved with medications at home; she has been seen in the ED several times for hyperemesis. - Reports severe SOB but no wheezing on lung exam. Noted to be tachycardic to 124 - States that she is unable to eat anything at all. Drinks but then vomits after drinking. During previous visit, no electrolyte abnormalities or sign of significant dehydration, but current tachycardia suggests that she may have worsening dehydration secondary to persistent vomiting - Labs sent in E. IVF, nebs ordered, though does not have any wheezing or sign of asthma currently 02/22/19 17:40 - Labs reviewed. CBC unremarkable. Chemistry notable for slight hyponatremia, Na 132, bicarb 13, glucose 70. LFT's elevated, increased from last visit but not as high as previously. Bili 2.8 (last 1.5, high 6.7), AST 98 (last 47, high 202), ALT 216 (last 219, high 397). - Additional 1L IVF w/ dextrose ordered for low glucose - Per chart review, had been previously transferred for cholecystectomy when LFTs were most elevated in January, but Ms Botello says that she did not proceed with the surgery because she was "not that sick." It is unclear whether she decided not to complete the surgery or if medical management was preferred for other reasons - Given known gallbladder pathology, worsening LFT elevation, persistent vomiting will obtain US of LUQ - Amylase, lipase, uric acid added by Dr Altamirano - Call placed to Dr Prieto to discuss continued symptoms 02/22/19 18:17 - Spoke to on-call OB for Dr Prieto, but Ms Botello follows at the clinic. Will call after completing US - Continued tachycardia to 120's, feels that heart is racing, after 1.5L IVF. Concerning for possible PE. Discussed risks and benefits of imaging with Ms Botello, and she agrees to the CTA. - Called to discuss with CT; will transport Ms Botello 02/22/19 19:54 - Amylase, lipase, uric acid WNL - CTA completed, reviewed in ED. No thrombus appreciated but radiology read pending 02/22/19 21:25 - Re-evaluated. HR now approx 85 manually after 2L IVF - CTA negative for PE - US completed. US shows IUP, 12w1d by CRL, HR 160. RUQ US indicates gallbladder filled w/ sludge, borderline wall thickening, no pericholecystic fluid. - RUQ TTP over gallbladder - Pt previously transferred to [facility]. Given abnormal US, elevated LFT's, persistent n/v, RUQ TTP will call for possible transfer 02/22/19 21:54 - Spoke to Dr Haro (OB) at [facility]. Will accept for transfer - Consent to be signed - Transportation will be arranged by [facility]. Discussed with Dr Altamirano. Jess Baer PGY1 *DC/Admit/Observation/Transfer Diagnosis at time of Disposition: Hyperemesis, RUQ pain, Elevated LFTs, Hyperbilirubinemia - Discharge Dispostion Disposition: TRANSFER ACUTE CARE/OTHER HOSP Condition at time of disposition: Stable - Referrals Referrals: Viola Montenegro CNM [Primary Care Provider] - - Patient Instructions - Post Discharge Activity - Transfer to Acute Care Facility Receiving Facility: [facility]. Accepting Physician:: Dr Galvez
--- NOTE | 2019-02-22 17:00 | PDOC ---
Attending Attestation - Resident Resident Name: Jess Baer - ED Attending Attestation I have performed the following: I have examined & evaluated the patient, The case was reviewed & discussed with the resident, I agree w/resident's findings & plan, Exceptions are as noted - HPI HPI: 02/22/19 17:03 Ms Botello is a 28 yo F who presents to the ER with a complaint of nausea and vomiting She also reports shortness of breath She is approximately 9 weeks She was previously seen in the ER for similar symptoms, ultimately transferred to [facility] due to likely recently passed stone Pt was treated with Abx at [facility] and pt states that they wanted to do a cholecystectomy Unclear to me why it was not done Pt states she has not eaten in 3-4 weeks The smell of food causes her to be nauseous She is able to tolerate sips of clears No fevers (+) chills Pt reports abdominal pain - ruq, worse with palpation of the right side of the abdomen and in the epigastrium, 8-9/10, radiation around the right upper back Pt also notes shortness of breath/asthma beginning yesterday She denies chest pain She has noted palpitations She has been using her albuterol inhaler with limited effect due to shortness of breath She notes lightheadedness and dizziness 02/22/19 17:39 - Physicial Exam PE: 02/22/19 16:59 GENERAL: The patient is in no acute distress, albuterol inhaler in place. ENT: Ears normal, nares patent, oropharynx clear without exudates. Moist mucous membranes. NECK: Normal range of motion, supple LUNGS: Breath sounds equal, clear to auscultation bilaterally. No wheezes HEART: Tachycardia, regular rhythm, no murmur appreciated ABDOMEN: Soft, epigastric tenderness to palpation, RUQ tenderness to palpation, no involuntary guarding EXTREMITIES: Normal range of motion, no edema noted. NEUROLOGICAL: Cranial nerves II through XII grossly intact. Normal speech. No focal neurological deficits. SKIN: Warm, Dry, normal turgor, no rashes or lesions noted. 02/22/19 17:42 - Critical Care Time Total Critical Care Time: 60 Critical Care Statement: The care of this patient involved high complexity decision making to prevent further life threatening deterioration of the patient 's condition and/or to evaluate & treat vital organ system(s) failure or risk of failure. - Medical Decision Making 02/22/19 17:43 28 yo F presenting to the ER with a complaint of nausea, vomiting, inability to tolerate po Was seen at [facility] for possible cholecystecomy which was ultimately not done Pt reports that she has persistent nausea, ruq pain and inability to tolerate po She also notes an asthma exacerbation DD: abdominal pain: biliary colic, cholecystitis, pancreatitis, biliary stasis of , gastritis Shortness of breath: Asthma, bronchitis, pneumonia, PE possible given tachycardia and Will start work up with: Labs EKG Repeat US RUQ and Contact Dr Conner Aj threshold to transfer this patient 02/22/19 17:45 Nausea has improved with medications Pt has has NO nutrition for the past month Will start hydrating with Dextrose containing fluids 02/22/19 17:48 Laboratory Tests 02/22/19 02/22/19 15:51 15:51 WBC 7.1 Hgb 14.3 Hct 41.4 Plt Count 284 Sodium 132 L Potassium 3.5 Chloride 103 Carbon Dioxide 13 L BUN 6 L Creatinine 0.5 L Random Glucose 70 L Total Bilirubin 2.8 H AST 98 H ALT 216 H 02/22/19 18:04 Laboratory Tests 02/22/19 15:51 Uric Acid 6.7 Total Amylase 37 Lipase 359 02/22/19 18:25 Pt re assessed She states she is having palpitations This has been happening for the past 2 days and causes her to feel short of breath and dizzy She has to lay down or sit down when this happens at home This has been happening only over the past 2 days, not before As a result of these symptoms, she could not get to her appointment because she couldn't walk up or down the stairs due to dizziness I have discussed CTA with this patient I have discussed risks of radiation to the baby and contrast Pt agrees to proceed, she reports familiarity with CT scanning Pt being wheeled over to CT now 02/22/19 19:07 Pt still has not had CT or US 02/22/19 19:22 CT performed 02/22/19 20:12 CTA negative 02/22/19 20:13 US demonstrates gb full of stone/sludge, bordeline wall thickening Pt abdomen nozzle tender Will contact [facility] They have accepted this patient for transfer Clinical Impression: chronic cholecystitis, repeat presentation
[2019-02-22] MEDS ORDERED: DEXTROSE 5%-NORMAL SALINE 1,000 ML IV ONE (17:47)
[2019-02-22 17:59] LABS: URIC ACID 6.7 mg/dL (2.6-7.2)
[2019-02-22] MEDS ORDERED: ONDANSETRON *ODT* 4 MG TABLET SL ONE (22:16)
[2019-02-22 23:29] LABS: URINE COLOR YELLOW
[2019-02-22 23:30] LABS: URINE APPEARANCE CLEAR; URINE BILIRUBIN NEGATIVE (NEGATIVE); URINE GLUCOSE (UA) NEGATIVE (NEGATIVE); URINE KETONE TRACE (NEGATIVE)
[2019-02-22 23:31] LABS: URINE LEUK ESTERASE NEGATIVE (NEGATIVE); URINE NITRITE NEGATIVE (NEGATIVE); URINE PROTEIN TRACE (NEGATIVE)
[2019-02-23 06:13] VITALS: BP 117/73; PULSE 88; TEMP 98
== END 2019-02-23 00:15 | disposition short-term general hospital (02) ==
LOC: JER 15:21
PROC: 3E0F7GC Introduction of Other Therapeutic Substance into Respiratory Tract, Via Natural or Artificial Opening (ICD-10-PCS; principal; 2019-02-22)
PROC: 3E033GC Introduction of Other Therapeutic Substance into Peripheral Vein, Percutaneous Approach (ICD-10-PCS; 2019-02-22)
PROC: 3E0337Z Introduction of Electrolytic and Water Balance Substance into Peripheral Vein, Percutaneous Approach (ICD-10-PCS; 2019-02-22)
DX: O26.891 Other specified pregnancy related conditions, first trimester (principal); O99.611 Diseases of the digestive system complicating pregnancy, first trimester; K81.1 Chronic cholecystitis; R94.5 Abnormal results of liver function studies; E80.6 Other disorders of bilirubin metabolism; O99.511 Diseases of the respiratory system complicating pregnancy, first trimester; J45.901 Unspecified asthma with (acute) exacerbation; Z3A.09 9 weeks gestation of pregnancy
CPT/HCPCS: 36415; 71275-TC; 76705-TC; 76815-TC; 80053; 81003; 82150; 83690; 84550; 85025; 93005; 93010; 99285-25; Q0162

== ENCOUNTER 2019-03-18 22:03 | Inpatient (IN) | payer OTHER ==
[2019-03-18 22:17] VITALS: BMI 24.2
--- NOTE | 2019-03-18 22:23 | PDOC ---
History of Present Illness - General Chief Complaint: Nausea/Vomiting Stated Complaint: /WANTS IV Time Seen by Provider: 03/18/19 22:23 - History of Present Illness Initial Comments: 28 year old female (15 weeks and 3 days by US) presenting with nausea and vomiting for the past 4 days after running out of her PRN Zofran. States that she has been nauseous throughout the beginning of her but this is worse than usual. She has been in and out of the ER for nausea/ vomiting since this all started. Denies fevers, chills, diarrhea, chest pain, urinary symptoms, cough, vaginal bleeding, discharge, or other symptoms. 03/18/19 22:34 Past History - Past Medical History Allergies/Adverse Reactions: Allergies Allergy/AdvReac Type Severity Reaction Status Date / Time No Known Drug Allergies Allergy Verified 03/18/19 22:17 Home Medications: Ambulatory Orders Fluticasone Propionate [Flovent Diskus] 50 mcg IH PRN PRN 02/16/19 Metoclopramide HCl 10 mg PO TID 02/16/19 Montelukast Sodium [Singulair] 10 mg PO DAILY 02/16/19 Nitrofurantoin Monohyd/M-Cryst [Macrobid -] 100 mg PO BID #10 capsule 02/16/19 Ondansetron HCl [Zofran] 4 mg PO TID #90 tablet 02/16/19 Doxylamine Succinate/Vit B6 [Diclegis Dr 10-10 mg Tablet] 1 each PO UTDICT PRN 15 Days #60 tablet. 03/18/19 Anemia: No Asthma: Yes Cancer: No Cardiac Disorders: No CVA: No COPD: No CHF: No Dementia: No Diabetes: No GI Disorders: No Disorders: No HTN: No Hypercholesterolemia: No Liver Disease: No Seizures: No Thyroid Disease: No - Surgical History Abdominal Surgery: No Appendectomy: No Cardiac Surgery: No Cholecystectomy: No Lung Surgery: No Neurologic Surgery: No Orthopedic Surgery: No - Reproductive History (#): 4 Para: 1 Therapeutic (s) & number: No Spontaneous : 2 - Immunization History Immunization Up to Date: Yes - Suicide/Smoking/Psychosocial Hx Smoking History: Unknown if ever smoked Have you smoked in the past 12 months: No Information on smoking cessation initiated: No Hx Alcohol Use: No Drug/Substance Use Hx: No Substance Use Type: None Hx Substance Use Treatment: No Review of Systems - Review of Systems Constitutional: No: Chills, Diaphoresis, Fever, Loss of Appetite HEENTM: No: Blurred Vision, Tearing Respiratory: No: Cough, Orthopnea, Shortness of Breath Cardiac (ROS): No: Chest Pain, Edema, Irregular Heart Rate ABD/GI: Yes: Nausea, Vomiting. No: Diarrhea : No: Dysuria, Discharge, Frequency Musculoskeletal: No: Joint Pain, Joint Swelling Integumentary: No: Lesions, Lumps Neurological: No: Headache, Numbness Psychiatric: No: Anxiety, Depression Hematologic/Lymphatic: No: Anemia, Blood Clots, Easy Bleeding *Physical Exam - Vital Signs Last Vital Signs Temp Pulse Resp BP Pulse Ox 97.5 F L 144 H 18 115/69 100 03/18/19 22:14 03/18/19 22:14 03/18/19 22:14 03/18/19 22:14 03/18/19 22:14 - Physical Exam General Appearance: Yes: Nourished, Appropriately Dressed. No: Apparent Distress HEENT: positive: EOMI, LIVE, Normal ENT Inspection Neck: positive: Trachea midline, Normal Thyroid, Supple. negative: Tender, Rigid Respiratory/Chest: positive: Lungs Clear, Normal Breath Sounds. negative: Chest Tender, Respiratory Distress Cardiovascular: positive: Regular Rhythm, Regular Rate Gastrointestinal/Abdominal: positive: Normal Bowel Sounds, Flat, Soft. negative : Tender Lymphatic: negative: Adenopathy, Tenderness Musculoskeletal: positive: Normal Inspection. negative: Decreased Range of Motion Extremity: positive: Normal Capillary Refill, Normal Inspection, Normal Range of Motion. negative: Tender Integumentary: positive: Normal Color, Dry, Warm Neurologic: positive: Fully Oriented, Alert, Normal Mood/Affect, Normal Response , Motor Strength 5/5 ED Treatment Course - LABORATORY CBC & Chemistry Diagram: 03/18/19 22:50 03/18/19 22:50 Medical Decision Making - Medical Decision Making 28 year old female with vomiting in first trimester of . Has been diagnosed with Hyperemesis gravidarum in the past and admits to running out of her zofran a few days ago. Labs here demonstrated transaminits and hyperbilruibinemia. 03/18/19 23:55 US demonstrating cholestasis and fatty liver which is concerning for intra- hapatic cholestasis of and/or acute fatty liver of as previous US demonstrate echogeneity of liver but no final read of fatty liver. Patient denied by internal medicine team for admission so spoke to Dr. Ramirez who was kind enough to accept patient to floor and will get GI onboard. We did call Dr. Corrigan's office and Dr. Garner's service but no reply was received. 03/19/19 02:19 *DC/Admit/Observation/Transfer Diagnosis at time of Disposition: Hyperemesis gravidarum, Intrahepatic cholestasis of in first trimester, Acute fatty liver of in first trimester - Discharge Dispostion Decision to Admit order: Yes - Prescriptions - Referrals - Patient Instructions - Post Discharge Activity
[2019-03-18] MEDS ORDERED: SODIUM CHLORIDE 0.9% 500 ML INFUS.BAG IV ONE (22:24)
[2019-03-18 22:59] LABS: BASO % 0.4 % (0-2.0); EOS % 0.4 % (0-4.5); HEMATOCRIT 39.1 % (32.4-45.2); HEMOGLOBIN 13.9 GM/dL (10.7-15.3); MCH 28.8 pg (25.7-33.7); MCHC 35.4 g/dl (32.0-36.0); MEAN CELL VOLUME 81.4 fl (80-96); MEAN PLT VOLUME 8.5 fl (7.5-11.1); MONO % 10.4 % (3.8-10.2); NEUT % 68.8 % (42.8-82.8); RBC 4.81 M/mm3 (3.60-5.2); RDW 15.9 % (11.6-15.6)
[2019-03-18 23:14] LABS: AMYLASE 45 U/L (25-115); LIPASE 483 U/L (73-393)
[2019-03-18 23:20] LABS: ALBUMIN 3.8 g/dl (3.4-5.0); BILIRUBIN,TOTAL 2.7 mg/dL (0.2-1); BLOOD UREA NITROGEN 3.7 mg/dL (7-18); CALCIUM 9.4 mg/dL (8.5-10.1); CREATININE 0.6 mg/dL (0.55-1.3); TOT PROT 7.5 g/dl (6.4-8.2)
[2019-03-18] MEDS ORDERED: PYRIDOXINE HCL (B-6) 50 MG TABLET (FP) PO ONE (23:32)
[2019-03-18] MEDS ORDERED: POTASSIUM CHLORIDE TABS 20 MEQ TABLET.ER (FP) PO ONE ×2 (23:34→23:52)
[2019-03-18] MEDS ORDERED: MAGNESIUM SULF 50% (8.12 MEQ/2 ML-1 GM VIAL) IVPB ONE (23:44)
[2019-03-18 23:54] LABS: PLATELET COUNT 238 K/MM3 (134-434); PLATELET ESTIMATE ADEQUATE
[2019-03-18] MEDS ORDERED: ONDANSETRON 4 MG/2 ML VIAL IVPUSH ONE (23:55)
[2019-03-18] MEDS ORDERED: MAGNESIUM SULF 50% (8.12 MEQ/2 ML-1 GM VIAL) ONE (23:57)
--- NOTE | 2019-03-19 00:16 | PDOC ---
Documentation entered by Dirk Robledo SCRIBE, acting as scribe for Vivi Holguin MD. Vivi Holguin MD: This documentation has been prepared by the Venkat riggs Daniel, SCRIBE, under my direction and personally reviewed by me in its entirety. I confirm that the documentation accurately reflects all work, treatment, procedures, and medical decision making performed by me. Attending Attestation - Resident Resident Name: Laura Martinez - ED Attending Attestation I have performed the following: I have examined & evaluated the patient, The case was reviewed & discussed with the resident, I agree w/resident's findings & plan - HPI HPI: 03/18/19 23:35 The patient is a 28 year old 15 week female with a past medical history of asthma here today for evaluation of nausea and vomiting. The patient states that she has had nausea and vomiting for the past 4 days after running out of zofran. Patient has been seen multiple times for nausea and vomiting during her but the patient states her current symptoms are worse than they have been. Patient denies headache, lightheadedness. Denies fever, chills. Denies chest pain, shortness of breath. Denies diarrhea, abdominal pain. Allergies: NKA PCP: Lin Thorpe - Physicial Exam PE: 03/18/19 23:53 GENERAL: Awake, alert, and fully oriented, in no acute distress. Patient clutching bag of bilious vomit at bedside. HEAD: No signs of trauma EYES: +jaundice eyes. PERRLA, EOMI ENT: Auricles normal inspection, hearing grossly normal, nares patent, oropharynx clear without exudates. Moist mucosa NECK: Normal ROM, supple, no lymphadenopathy, JVD, or masses LUNGS: Breath sounds equal, clear to auscultation bilaterally. No wheezes, and no crackles HEART: Regular rate and rhythm, normal S1 and S2, no murmurs, rubs or gallops ABDOMEN: Soft, nontender, normoactive bowel sounds. No guarding, no rebound. No masses EXTREMITIES: Normal range of motion, no edema. No clubbing or cyanosis. No cords, erythema, or tenderness NEUROLOGICAL: Cranial nerves II through XII grossly intact. Normal speech, normal gait SKIN: Warm, Dry, normal turgor, no rashes or lesions noted. - Medical Decision Making 03/18/19 23:59 Pt is vomiting up bilious material and she has jaundiced skin and conjunctiva; and she never experienced this in . Pt has no PMhx. She has a PMD, Coco Corrigan. Her MACHINE ACCOUNTANT is Dr. Prieto. Pt will be admitted for GI eval, as she has never had GI consult or exam in this hospital, despite multiple visits. Pt states that she is unable to tolerate oral intake. She will be admitted for hyperemesis gravdum, as well as elevated LFTs and Tbili and mildly elevated lipase. 03/19/19 00:14 Once again, mediceine service is calling this an auger supervisor issue, though it is clearly a GI issue. I will request an OB consult; however pt requires evaluation by a potato bucker for her hepatitis/pancreatitis/jaundice, which is her presening complaint. Pt will be admitted to Medicine Service. 03/19/19 00:25 We are awaiting sono abd. Medicine will not admit patient. We will call GI after sono; they can consult in the ER. Patient needs a GI doc to physically lay hands on her and see her in this hospital. 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 FINDINGS: Right upper quadrant ultrasound:The liver is mildly fatty, without mass or biliary duct dilation. The gallbladder is filled with sludge without secondary signs for cholecystitis. The CBD is not dilated and measures4 millimeters in diameter. Right kidney measures 10.0centimeters in length and is unremarkable. The visualized aorta and IVC are normal. Pancreas is partially obscured, but appears normal. Abdominal duplex: The main portal vein demonstrates normal hepatopedal flow
[2019-03-19 00:54] LABS: EPI CELLS 10.6 /HPF (0-5/HPF); HYALINE CASTS 101 /lpf (0-8); PH,URINE 5.5 (5.0-8.0); URINE APPEARANCE CLOUDY; URINE BACTERIA 1020.6 /hpf (NEGATIVE); URINE BILIRUBIN 2+ (NEGATIVE); URINE COLOR DK YELLOW; URINE GLUCOSE (UA) NEGATIVE (NEGATIVE); URINE KETONE 4+ (NEGATIVE); URINE LEUK ESTERASE 1+ (NEGATIVE); URINE NITRITE NEGATIVE (NEGATIVE); URINE PROTEIN 2+ (NEGATIVE); URINE RBC 3 /hpf (0-4); URINE WBC 38 /hpf (0-5)
[2019-03-19 00:55] LABS: HCG,QUALITATIVE URINE Positive
[2019-03-19] MEDS ORDERED: NITROFURANTOIN MACROCRYSTAL 50 MG CAPSULE (FP) PO SCH (02:15)
[2019-03-19] MEDS ORDERED: DEXTROSE 5%-LACTATED RINGERS 500 ML IV ONE ×2 (04:40→05:39)
[2019-03-19] MEDS ORDERED: ACETAMINOPHEN 325 MG TABLET (FP) PO PRN (05:54)
[2019-03-19] MEDS ORDERED: ONDANSETRON 4 MG/2 ML VIAL ONE (08:23)
[2019-03-19] MEDS ORDERED: ONDANSETRON 4 MG/2 ML VIAL IVPB PRN (08:26)
[2019-03-19] MEDS ORDERED: ALBUTEROL SO4 8 GM HFA INHALER IH PRN (08:27)
--- NOTE | 2019-03-19 08:28 | HP ---
Admitting History and Physical - Past Medical History ...LMP: 12/01/18 ...: Yes - Smoking History Smoking history: Unknown if ever smoked Have you smoked in the past 12 months: No - Alcohol/Substance Use Hx Alcohol Use: No - Social History History of Recent Travel: No Home Medications - Allergies Allergies/Adverse Reactions: Allergies Allergy/AdvReac Type Severity Reaction Status Date / Time No Known Drug Allergies Allergy Verified 03/18/19 22:17 - Home Medications Home Medications: Ambulatory Orders Fluticasone Propionate [Flovent Diskus] 50 mcg IH PRN PRN 02/16/19 Metoclopramide HCl 10 mg PO TID 02/16/19 Montelukast Sodium [Singulair] 10 mg PO DAILY 02/16/19 Nitrofurantoin Monohyd/M-Cryst [Macrobid -] 100 mg PO BID #10 capsule 02/16/19 Ondansetron HCl [Zofran] 4 mg PO TID #90 tablet 02/16/19 Doxylamine Succinate/Vit B6 [Diclegis Dr 10-10 mg Tablet] 1 each PO UTDICT PRN 15 Days #60 tablet. 03/18/19 Physical Examination Vital Signs: Vital Signs Temperature 98.2 F 03/19/19 06:04 Pulse Rate 100 H 03/19/19 06:04 Respiratory Rate 20 03/19/19 06:04 Blood Pressure 100/64 03/19/19 06:04 O2 Sat by Pulse Oximetry (%) 100 03/19/19 03:07 Labs: CBC, BMP 03/18/19 22:50 03/18/19 22:50
[2019-03-19] MEDS ORDERED: ONDANSETRON 4 MG/2 ML VIAL IVPUSH PRN (08:30)
[2019-03-19] MEDS: DEXTROSE 5%-LACTATED RINGERS 1,000 ML IV SCH ×2 (08:34→16:59)
--- NOTE | 2019-03-19 09:41 | CON.OBG ---
Consult Consult Specialty:: RADIOISOTOPE TECHNICIAN Reason for Consultation:: Nausea / Vomiting in - History of Present Illness Chief Complaint: Nausea/Vomiting History of Present Illness: 28 year old female (15 weeks and 3 days by US) presenting with nausea and vomiting for the past 4 days after running out of her PRN Zofran. States that she has been nauseous throughout the beginning of her but this is worse than usual. She has been in and out of the ER for nausea/ vomiting since this all started. Denies fevers, chills, diarrhea, chest pain, urinary symptoms, cough, vaginal bleeding, discharge, or other symptoms. - History Source History Provided By: Patient Limitations to Obtaining History: No Limitations - Past Medical History ...LMP: 12/01/18 ...: Yes ...: 8 ...Para: 2 - Past Surgical History Past Surgical History: Yes: None - Alcohol/Substance Use Hx Alcohol Use: No History of Substance Use: reports: None - Smoking History Smoking history: Unknown if ever smoked Have you smoked in the past 12 months: No - Social History History of Recent Travel: No Home Medications - Allergies Allergies/Adverse Reactions: Allergies Allergy/AdvReac Type Severity Reaction Status Date / Time No Known Drug Allergies Allergy Verified 03/18/19 22:17 - Home Medications Home Medications: Ambulatory Orders Fluticasone Propionate [Flovent Diskus] 50 mcg IH PRN PRN 02/16/19 Metoclopramide HCl 10 mg PO TID 02/16/19 Montelukast Sodium [Singulair] 10 mg PO DAILY 02/16/19 Nitrofurantoin Monohyd/M-Cryst [Macrobid -] 100 mg PO BID #10 capsule 02/16/19 Ondansetron HCl [Zofran] 4 mg PO TID #90 tablet 02/16/19 Doxylamine Succinate/Vit B6 [Cm Griffith 10-10 mg Tablet] 1 each PO UTDICT PRN 15 Days #60 tablet. 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 Vital Signs: Vital Signs Temperature 98.1 F 03/19/19 09:12 Pulse Rate 96 H 03/19/19 09:12 Respiratory Rate 18 03/19/19 09:12 Blood Pressure 102/63 03/19/19 09:12 O2 Sat by Pulse Oximetry (%) 100 03/19/19 03:07 Constitutional: Yes: Calm, Mild Distress Eyes: Yes: Conjunctiva Clear HENT: Yes: Atraumatic Neck: Yes: Supple Cardiovascular: Yes: Regular Rate and Rhythm Respiratory: Yes: Regular ...Rectal Exam: Yes: WNL Renal/: Yes: WNL Pelvis: Yes: WNL External Genitalia: Yes: Normal Vaginal Exam: Yes: Normal Cervix: Yes: Normal Uterus: Yes: Other (Gravid) Labs: CBC, BMP 03/18/19 22:50 03/18/19 22:50 Assessment/Plan Nausea and vomiting Fatty liver Continue Zofran IVF Multivitamin
[2019-03-19] MEDS ORDERED: MULTIVIT INJ. ADULT COMBO WITH VIT K 1 COMBO 10 ML VIAL IV SCH (11:30)
[2019-03-19] MEDS ORDERED: MULTIVITAMINS (DAILY MVI) TABLET (FP) PO ONE (13:15)
--- NOTE | 2019-03-19 13:50 | PN ---
Progress Note (short form) - Note Progress Note: 28yo @ 15+wks here with HEG. First admission here for this. Numerous ER visits here and at [facility] for this. States she was taking Zofran once a day at home, with little relief and "dizzy" medicine, presumed phenergan 3x/day. States at home she had little appetite, but able to keep down water and vitamin water. Chart from clinic obtained and reviewed, labs reviewed as well as weight. Weight this admission per patient was 150lbs, however, that was by her account. Scale brought into the room- actual weight 159lbs. Last weight in clinic on was 164lbs. Starting weight in January (02/01) was 186lbs. Able to tolerate some food for breakfast. For lunch, she has only eaten an orange so far. We discussed food choice and advised that fatty/spicy and citrus fruit were poor choices. Redirected to better food choices. Will recheck her BMP and reassess for discharge around dinnertime. I reviewed her discharge medications with her and how to take them. She has been under-dosed for her Zofran and we have maximized the amount and frequency for her nausea; in addition to adding Unisom at bedtime. Geetha Rodrigues MD
--- NOTE | 2019-03-19 13:57 | CON.GI ---
Consult Consult Specialty:: GI Referred by:: ORALIA Reason for Consultation:: hyperemesis gravidarum - History of Present Illness Chief Complaint: turning yellow History of Present Illness: 28F at 15 weeks gestation presenting for recurrent N/V and turning yellow. Visited ED at [facility] multiple times for this. GI consulted for abnormal LFTs. Patient believes LFTs were normal prior to . Has never been as sick as this with prior pregnancies. Had been given SL zofran at OSH which helped, and another medication that made her dizzy. No abdominal pain. Had abdominal US showing GB sludge and fatty liver. Hep serologies pending. - History Source History Provided By: Patient - Past Medical History ...LMP: 12/01/18 ...: Yes - Past Surgical History Past Surgical History: Yes: None - Alcohol/Substance Use Hx Alcohol Use: No History of Substance Use: reports: None - Smoking History Smoking history: Unknown if ever smoked Have you smoked in the past 12 months: No - Social History History of Recent Travel: No Home Medications - Allergies Allergies/Adverse Reactions: Allergies Allergy/AdvReac Type Severity Reaction Status Date / Time No Known Drug Allergies Allergy Verified 03/18/19 22:17 - Home Medications Home Medications: Ambulatory Orders Fluticasone Propionate [Flovent Diskus] 50 mcg IH PRN PRN 02/16/19 Montelukast Sodium [Singulair] 10 mg PO DAILY 02/16/19 Doxylamine Succinate/Vit B6 [Cm Griffith 10-10 mg Tablet] 1 each PO UTDICT PRN 15 Days #60 tablet. 03/18/19 Albuterol Sulfate Inhaler - [Ventolin HFA Inhaler -] 2 puff IH Q4H PRN inhaler 03/19/19 Doxylamine Succinate [Unisom] 25 mg PO HS 14 Days #14 tablet 03/19/19 Ondansetron [Zofran *Odt*] 8 mg SL TID 7 Days #24 od.tablet 03/19/19 Promethazine HCl [Phenergan -] 25 mg PO TID #21 tablet 03/19/19 Review of Systems - Review of Systems Constitutional: reports: No Symptoms Eyes: reports: No Symptoms HENT: reports: No Symptoms Cardiovascular: reports: No Symptoms Respiratory: reports: No Symptoms Gastrointestinal: reports: Nausea, Vomiting. denies: Abdominal Pain Breasts: reports: No Symptoms Reported Musculoskeletal: reports: No Symptoms Integumentary: reports: No Symptoms Neurological: reports: No Symptoms Physical Exam-GI Vital Signs: Vital Signs Temperature 98.1 F 03/19/19 09:12 Pulse Rate 96 H 03/19/19 09:12 Respiratory Rate 18 03/19/19 09:12 Blood Pressure 102/63 03/19/19 09:12 O2 Sat by Pulse Oximetry (%) 100 03/19/19 03:07 Constitutional: Yes: Well Nourished, No Distress, Calm Eyes: Yes: Conjunctiva Clear. No: Sclera Icterus HENT: Yes: Atraumatic, Normocephalic Neck: Yes: WNL Cardiovascular: Yes: Regular Rate and Rhythm Respiratory: Yes: Cough Gastrointestinal Inspection: Yes: WNL ...Palpate: Yes: Soft. No: Tenderness ...Rectal Exam: Yes: Deferred Edema: No Neurological: Yes: Alert, Oriented Labs: CBC, BMP 03/18/19 22:50 03/18/19 22:50 Hepatic Panel Total Bilirubin 2.7 mg/dL (0.2-1) H 03/18/19 22:50 AST 58 U/L (15-37) H 03/18/19 22:50 ALT 135 U/L (13-61) H 03/18/19 22:50 Alkaline Phosphatase 116 U/L (45-117) 03/18/19 22:50 Albumin 3.8 g/dl (3.4-5.0) 03/18/19 22:50 Imaging - Results Ultrasound: Report Reviewed Assessment/Plan Hyperemesis gravidarum - would optimize SL zofran and add Unisom as is being done. Trend LFTs.
[2019-03-19 14:49] LABS: CALCIUM 8.1 mg/dL (8.5-10.1); CREATININE 0.5 mg/dL (0.55-1.3)
[2019-03-19 15:06] LABS: BLOOD UREA NITROGEN 2.3 mg/dL (7-18); POTASSIUM 2.8 mmol/L (3.5-5.1)
[2019-03-19] MEDS ORDERED: POTASSIUM CHLORIDE ORAL LIQUID 20 MEQ/15 ML PO ONE (15:23)
[2019-03-19 18:13] VITALS: BP 134/53; PULSE 94; TEMP 98.4
[2019-03-19 20:59] LABS: CALCIUM 8.4 mg/dL (8.5-10.1); CREATININE 0.5 mg/dL (0.55-1.3); POTASSIUM 3.2 mmol/L (3.5-5.1)
[2019-03-19 21:15] LABS: BLOOD UREA NITROGEN 2.1 mg/dL (7-18)
[2019-03-19] MEDS ORDERED: PYRIDOXINE HCL (B-6) 50 MG TABLET (FP) PO ONE (22:38)
[2019-03-20 02:13] LABS: HBSAG SCREEN Negative (Negative); HEP B CORE AB, TOT Negative (Negative)
== END 2019-03-19 21:40 | disposition home or self-care (01) | DRG 566 ==
LOC: JER 22:03 → JERBED 23:47 → J3W 03-19 03:48
PROVIDERS: ADMIT Obstetrics & Gynecology; ATTEND Obstetrics & Gynecology
DX: O21.0 Mild hyperemesis gravidarum (principal); Z3A.15 15 weeks gestation of pregnancy; E80.6 Other disorders of bilirubin metabolism; R17 Unspecified jaundice
CPT/HCPCS: 36415; 76705-TC; 80048; 80053; 81003; 82150; 83690; 84703; 85025; 86704; 86706; 86707; 86708; 87340; 87350; 87902; 99282-25

== ENCOUNTER 2019-04-14 13:18 | Emergency (ER) | payer OTHER ==
[2019-04-14 13:39] VITALS: BP 115/75; PULSE 92; TEMP 98.7; BMI 25.7
--- NOTE | 2019-04-14 15:06 | PDOC ---
History of Present Illness - General Chief Complaint: Injury Stated Complaint: INJURY Time Seen by Provider: 04/14/19 14:22 History Source: Patient Exam Limitations: No Limitations - History of Present Illness Initial Comments: 04/14/19 15:03 Status post trip and fall, fell forward landing on knees, hands and striking forehead on the ground. States also impacted abdomen is concerned about her four -month . Denies vaginal drainage discharge or bleeding. States has some mild tenderness in her abdomen but no cramping. There was no LOC visual changes bleeding from nose or ears or other distracting injury associated with head contusion. Has taken no medications for result Occurred: reports: this morning Severity: reports: mild, moderate Pain Location: reports: face, lower extremity (knees ) Method of Injury: Yes: fall Modifying Factors: improves with: None Loss of Consciousness: no loss of consciousness Associated Symptoms (Fall): denies symptoms Past History - Travel Traveled outside of the country in the last 30 days: No Close contact w/someone who was outside of country & ill: No - Past Medical History Allergies/Adverse Reactions: Allergies Allergy/AdvReac Type Severity Reaction Status Date / Time No Known Drug Allergies Allergy Verified 04/14/19 13:38 Home Medications: Ambulatory Orders Fluticasone Propionate [Flovent Diskus] 50 mcg IH PRN PRN 02/16/19 Montelukast Sodium [Singulair] 10 mg PO DAILY 02/16/19 Doxylamine Succinate/Vit B6 [Cm Griffith 10-10 mg Tablet] 1 each PO UTDICT PRN 15 Days #60 tablet. 03/18/19 Albuterol Sulfate Inhaler - [Ventolin HFA Inhaler -] 2 puff IH Q4H PRN inhaler 03/19/19 Doxylamine Succinate [Unisom] 25 mg PO HS 14 Days #14 tablet 03/19/19 Ondansetron [Zofran *Odt*] 8 mg SL TID 7 Days #24 od.tablet 03/19/19 Promethazine HCl [Phenergan -] 25 mg PO TID #21 tablet 03/19/19 Anemia: No Asthma: Yes Cancer: No Cardiac Disorders: No CVA: No COPD: No CHF: No Dementia: No Diabetes: No GI Disorders: No Disorders: No HTN: No Hypercholesterolemia: No Liver Disease: No Seizures: No Thyroid Disease: No - Surgical History Abdominal Surgery: No Appendectomy: No Cardiac Surgery: No Cholecystectomy: No Lung Surgery: No Neurologic Surgery: No Orthopedic Surgery: No - Reproductive History (#): 4 Para: 1 Therapeutic (s) & number: No Spontaneous : 2 - Immunization History Immunization Up to Date: Yes - Suicide/Smoking/Psychosocial Hx Smoking History: Never smoked Have you smoked in the past 12 months: No Hx Alcohol Use: No Drug/Substance Use Hx: No Substance Use Type: None Hx Substance Use Treatment: No Review of Systems - Review of Systems Able to Perform ROS?: Yes Is the patient limited Bol[place]ian proficient: Yes Constitutional: Yes: See HPI. No: Symptoms Reported HEENTM: Yes: See HPI. No: Symptoms Reported, Eye Pain, Blurred Vision, Tearing Respiratory: Yes: See HPI. No: Symptoms reported ABD/GI: Yes: Symptoms Reported, See HPI, Other (mild suprapubic tenderness). No : Nausea, Vomiting Musculoskeletal: Yes: Symptoms Reported, Joint Pain, Joint Swelling All Other Systems: Reviewed and Negative *Physical Exam - Vital Signs Last Vital Signs Temp Pulse Resp BP Pulse Ox 98.7 F 92 H 18 115/75 99 04/14/19 13:35 04/14/19 13:35 04/14/19 13:35 04/14/19 13:35 04/14/19 13:35 - Physical Exam General Appearance: Yes: Nourished, Appropriately Dressed, Apparent Distress, Mild Distress HEENT: positive: LIVE, Normal ENT Inspection, TMs Normal (no hemotympanum, no drainage from nose or ears, no evidence skull fracture), Pharynx Normal Neck: positive: Tender (I'll to paravertebral spinous tenderness, no crepitus or step-offs, no true bone pain. Has full range of motion and neck. Smile tenderness along the lower trapezius area.) Respiratory/Chest: positive: Lungs Clear Musculoskeletal: positive: Normal Inspection Extremity: positive: Normal Capillary Refill, Normal Inspection, Tender (mild tenderness along the shoulder capsule right side, with superficial abrasion and mild contusion at proximal humerus area. 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 No evidence of significant bony injury therefore no x-rays are indicated. Abdomen is mildly tender but heart rate 140 and regular. No bruising, swelling to abdomen. Patient states feels much better knowing that the rate is appropriate. Ready for discharge *DC/Admit/Observation/Transfer Diagnosis at time of Disposition: Multiple contusions - Discharge Dispostion Disposition: HOME Condition at time of disposition: Stable Decision to Admit order: No - Referrals - Patient Instructions Additional Instructions: Rest, ice to area on and off for 15 minutes 4-6 times a day Avoid heavy lifting or exercise until pain and swelling is resolved or until further directed Keep area highly elevated to reduce swelling Use splints/Melvin wrap as directed Followup with orthopedist in one to 2 days if not improving, if significantly improved may wait one week for followup with orthopedist May use Tylenol, 2325 milligrams tablets every 4-6 hours as needed for pain - Post Discharge Activity Forms/Work/School Notes: Back to Work
[2019-04-14] MEDS ORDERED: ACETAMINOPHEN 500 MG TABLET (FP) PO ONE (15:18)
[2019-04-14] MEDS ORDERED: ACETAMINOPHEN 325 MG TABLET (FP) ONE (15:18)
== END 2019-04-14 15:22 | disposition home or self-care (01) ==
LOC: JERFT 13:18
DX: O26.892 Other specified pregnancy related conditions, second trimester (principal); S00.83XA Contusion of other part of head, initial encounter; S80.02XA Contusion of left knee, initial encounter; S80.01XA Contusion of right knee, initial encounter; S60.222A Contusion of left hand, initial encounter; S60.221A Contusion of right hand, initial encounter; W19.XXXA Unspecified fall, initial encounter; Y93.89 Activity, other specified; Y92.89 Other specified places as the place of occurrence of the external cause; Y99.8 Other external cause status; Z3A.16 16 weeks gestation of pregnancy
CPT/HCPCS: 99282-25

== ENCOUNTER 2019-04-17 22:26 | Emergency (ER) | payer OTHER ==
[2019-04-17 22:44] VITALS: BP 104/62; PULSE 78; TEMP 98.4; BMI 25.8
[2019-04-18] MEDS ORDERED: ACETAMINOPHEN 1000 MG/100 ML VIAL (NON FORMULARY) IVPB ONE (01:48)
[2019-04-18] MEDS ORDERED: FAMOTIDINE 20 MG/50 ML IVPB 20 MG/50 ML MG IVPB ONE ×2 (01:48→03:11)
--- NOTE | 2019-04-18 01:53 | PDOC ---
History of Present Illness - General Chief Complaint: Shortness of Breath Stated Complaint: 19 WKS /ABD PAIN Time Seen by Provider: 04/18/19 01:32 - History of Present Illness Initial Comments: Gibran Botello is a 28yo woman currently 4mo who presents with RUQ pain since 3pm today. She reports that the pain started in the afternoon, resolved without intervention, and she was able to eat dinner without difficulty. The pain restarted at about 9:30 tonight, and she felt that she needed to be evaluated. She is unable to describe the quality of the pain, but she says that it is severe. It does not radiate. She has never had similar pain in the past. She has no associated nausea, vomiting, or diarrhea though she states that due to the severity of the pain she is unable to take a deep breath. She denies any chest pain, cough, wheezing, or difficulty breathing otherwise. She has not had any fevers or chills. She reports that earlier in her she had severe nausea and vomiting, but this has resolved and she has been eating well recently. Past History - Past Medical History Allergies/Adverse Reactions: Allergies Allergy/AdvReac Type Severity Reaction Status Date / Time No Known Drug Allergies Allergy Verified 04/17/19 22:39 Home Medications: Ambulatory Orders Fluticasone Propionate [Flovent Diskus] 50 mcg IH PRN PRN 02/16/19 Montelukast Sodium [Singulair] 10 mg PO DAILY 02/16/19 Doxylamine Succinate/Vit B6 [Cm Griffith 10-10 mg Tablet] 1 each PO UTDICT PRN 15 Days #60 tablet. 03/18/19 Albuterol Sulfate Inhaler - [Ventolin HFA Inhaler -] 2 puff IH Q4H PRN inhaler 03/19/19 Doxylamine Succinate [Unisom] 25 mg PO HS 14 Days #14 tablet 03/19/19 Ondansetron [Zofran *Odt*] 8 mg SL TID 7 Days #24 od.tablet 03/19/19 Promethazine HCl [Phenergan -] 25 mg PO TID #21 tablet 03/19/19 Nitrofurantoin Monohyd/M-Cryst [Macrobid -] 100 mg PO BID #14 capsule 04/18/19 Anemia: No Asthma: Yes Cancer: No Cardiac Disorders: No CVA: No COPD: No CHF: No Dementia: No Diabetes: No GI Disorders: No Disorders: No HTN: No Hypercholesterolemia: No Liver Disease: No Seizures: No Thyroid Disease: No - Surgical History Abdominal Surgery: No Appendectomy: No Cardiac Surgery: No Cholecystectomy: No Lung Surgery: No Neurologic Surgery: No Orthopedic Surgery: No - Reproductive History (#): 4 Para: 1 Therapeutic (s) & number: No Spontaneous : 2 - Immunization History Immunization Up to Date: Yes - Suicide/Smoking/Psychosocial Hx Smoking History: Never smoked Have you smoked in the past 12 months: No Hx Alcohol Use: No Drug/Substance Use Hx: No Substance Use Type: None Hx Substance Use Treatment: No Review of Systems - Review of Systems Comments:: General: No fevers, no chills, no weight or appetite change, no malaise HEENT: No changes in vision, no changes in hearing, no congestion, no sore throat CV: No chest pain, no palpitations, no LE edema Pulm: No SOB, no cough, no wheezing GI: See HPI : No frequency, no urgency, no dysuria Musc: No back pain, no joint swelling, no recent injury Skin: No rash, no lesions, no erythema Endo: No excessive thirst, no heat/cold intolerance Heme: No unusual bruising or bleeding, no swollen glands Neuro: No syncope, no numbness/tingling, no focal weakness Vasc: No claudication Psych: No recent change in mood, no SI or HI *Physical Exam - Vital Signs Last Vital Signs Temp Pulse Resp BP Pulse Ox 98.4 F 78 20 104/62 100 04/17/19 22:39 04/17/19 22:39 04/17/19 22:39 04/17/19 22:39 04/17/19 22:39 - Physical Exam Comments: General: Comfortable, no acute distress HEENT: PERRL, EOMI, MMM, voice normal, normal neck ROM Cards: RRR, no murmur appreciated Pulm: Comfortable on room air, clear to auscultation bilaterally Abd: Soft, non-distended. RUQ TTP. Gravid. Ext: Atraumatic. No LE edema. ROM intact Vasc: Extremities WWP Skin: Normal color, no rashes or lesions Neuro: A&Ox3, CN grossly intact, normal speech, motor/sensory grossly intact and symmetric Psych: Mood appropriate to situation ED Treatment Course - LABORATORY CBC & Chemistry Diagram: 04/18/19 02:20 04/18/19 02:20 - RADIOLOGY Radiology Studies Ordered: Category Date Time Status ABDOMEN US -LIMITED [US] Stat Ultrasound 04/18/19 01:46 Ordered Medical Decision Making - Medical Decision Making 04/18/19 01:49 Gibran Botello is a 28yo woman with a PMH of asthma, currently 4mo , who presents with RUQ pain since 3pm today that initially resolved then recurred at 9:30. She denies any associated symptoms including fever, nausea, vomiting, or change in bowel habits. She has never had similar pain before. - Ddx includes gastritis, cholesystitis/cholelithiasis, pancreatitis. No respiratory symptoms suggesting pneumonia. No urinary symptoms suggesting pyelo - CBC, CMP, lipase, UA - Acetaminophen for pain 04/18/19 03:42 - UA positive. As pt is , will treat for UTI. Macrobid here and prescription for home - Labs reviewed. Unremarkable, no concerning abnormalities. LFT's and bili normal - US shows gallstones, no sign of infection including wall thickening, pericholecystic fluid, duct dilation. Symptoms most likely due to cholelithiasis. - Will complete bedside US to evaluate - Pt reports feeling improved. Will most likely d/c home with surgical follow up 04/18/19 04:43 - Bedside US completed. Good movement. FHR 152 - Advised Ms Botello regarding the gallstones and bacteriuria. Discussed home care , follow up and return precautions at length. She states understanding and agreement with the plan. Will follow up with surgery Discussed with Dr Hopkins. Jess Baer PGY2 *DC/Admit/Observation/Transfer Diagnosis at time of Disposition: Cholelithiasis affecting , antepartum, Bacteriuria during - Discharge Dispostion Disposition: HOME Condition at time of disposition: Stable Decision to Admit order: No - Prescriptions Prescriptions: Nitrofurantoin Monohyd/M-Cryst [Macrobid -] 100 mg PO BID #14 capsule - Referrals Referrals: Justin Conrad MD [Staff Physician] - - Patient Instructions Printed Discharge Instructions: DI for Gallstones Additional Instructions: Discharge Instructions: You were seen in the emergency department for abdominal pain. Your blood tests were all normal, but your ultrasound showed stones in your gallbladder. These are most likely the cause of your pain. You were also found to have bacteria in your urine and have been prescribed an antibiotic. Home Care and Follow Up: - You have been prescribed an antibiotic called Macrobid (nitrofurantoin) for your urinary infection. It is very important to take this as prescribed as urinary infection can affect your . - You may take 650-1000mg of acetaminophen (Tylenol) every 6-8 hours as needed for pain. This is safe during . - Avoid fatty, greasy, or fried foods. These can worsen pain from gallstones. - You have been referred to a surgeon, Dr Conrad. Call him to make an appointment within the next week to discuss additional management of your gallstones. - Seek immediate medical care if you have worsening pain, continued vomiting, you are unable to eat or drink, you develop fever to 101F or higher, your pain does not improve with medications, or you have any other medical emergency. - Post Discharge Activity
[2019-04-18 02:19] LABS: EPI CELLS 27.9 /HPF (0-5/HPF); HYALINE CASTS 18 /lpf (0-8); URINE APPEARANCE CLOUDY; URINE BACTERIA 1267.2 /hpf (NEGATIVE); URINE BILIRUBIN NEGATIVE (NEGATIVE); URINE COLOR YELLOW; URINE GLUCOSE (UA) NEGATIVE (NEGATIVE); URINE KETONE TRACE (NEGATIVE); URINE LEUK ESTERASE 1+ (NEGATIVE); URINE NITRITE NEGATIVE (NEGATIVE); URINE PROTEIN TRACE (NEGATIVE); URINE RBC 4 /hpf (0-4); URINE WBC 13 /hpf (0-5)
[2019-04-18 02:31] LABS: BASO % 0.2 % (0-2.0); EOS % 0.3 % (0-4.5); HEMATOCRIT 31.5 % (32.4-45.2); HEMOGLOBIN 10.6 GM/dL (10.7-15.3); LYMPH % 12.8 % (8-40); MCH 29.5 pg (25.7-33.7); MCHC 33.8 g/dl (32.0-36.0); MEAN CELL VOLUME 87.3 fl (80-96); MEAN PLT VOLUME 7.9 fl (7.5-11.1); MONO % 4.4 % (3.8-10.2); NEUT % 82.3 % (42.8-82.8); PLATELET COUNT 234 K/MM3 (134-434); RBC 3.61 M/mm3 (3.60-5.2); RDW 15.1 % (11.6-15.6); WHITE BLOOD COUNT 10.6 K/mm3 (4.0-10.0)
--- NOTE | 2019-04-18 02:37 | PDOC ---
Documentation entered by Tessa Bishop SCRIBE, acting as scribe for Charis Hopkins DO. Charis Hopkins DO: This documentation has been prepared by the Edna riggs Brenda, SCRIBE, under my direction and personally reviewed by me in its entirety. I confirm that the documentation accurately reflects all work , treatment, procedures, and medical decision making performed by me. Attending Attestation - Resident Resident Name: BuffyJess - ED Attending Attestation I have performed the following: I have examined & evaluated the patient, The case was reviewed & discussed with the resident, I agree w/resident's findings & plan, Exceptions are as noted - HPI HPI: 04/18/19 02:31 The patient is a 28 year old female (), 19 weeks with a significant PMH of asthma, who presents to the emergency department with intermittent right abdominal pain since 3:00pm. Patient reports feeling fine throughout the day, with normal P.O intake. However, at 3:00pm, patient states she began to feel right abdominal pain, aggravated by lying down and sitting down. She notes that the pain went away, and returned a couple of hours ago prompting her arrival to the ED. Patient also endorses nausea. The patient denies chest pain, shortness of breath, headache and dizziness. Denies fever, chills, vomiting, diarrhea and constipation. Allergies: NKA Past surgical history: None Social history: Denies PCP: Not reported - Physicial Exam PE: 04/18/19 01:46 Agree with resident's exam. - Medical Decision Making 04/18/19 02:35 28-year-old gravid female with right upper quadrant pain Right upper quadrant ultrasound and labs IV fluids, antiemetics as needed Surgical consultation pending ultrasound results
[2019-04-18 03:02] LABS: ALBUMIN 3.3 g/dl (3.4-5.0); BILIRUBIN,TOTAL 0.8 mg/dL (0.2-1); BLOOD UREA NITROGEN 4.6 mg/dL (7-18); CALCIUM 8.9 mg/dL (8.5-10.1); CREATININE 0.5 mg/dL (0.55-1.3); POTASSIUM 4.2 mmol/L (3.5-5.1); TOT PROT 7.1 g/dl (6.4-8.2)
[2019-04-18] MEDS ORDERED: ACETAMINOPHEN INJECTION 100 ML IVPB ONE (03:10)
[2019-04-18] MEDS ORDERED: NITROFURANTOIN MACROCRYSTAL 50 MG CAPSULE (FP) PO SCH (04:45)
[2019-04-18] MEDS ORDERED: NITROFURANTOIN MACROCRYSTAL 50 MG CAPSULE (FP) ONE (04:52)
== END 2019-04-18 04:58 | disposition home or self-care (01) ==
LOC: JER 22:26
PROC: 3E033NZ Introduction of Analgesics, Hypnotics, Sedatives into Peripheral Vein, Percutaneous Approach (ICD-10-PCS; principal; 2019-04-17)
PROC: 3E033GC Introduction of Other Therapeutic Substance into Peripheral Vein, Percutaneous Approach (ICD-10-PCS; 2019-04-17)
DX: O26.892 Other specified pregnancy related conditions, second trimester (principal); O99.612 Diseases of the digestive system complicating pregnancy, second trimester; Z3A.19 19 weeks gestation of pregnancy; R82.71 Bacteriuria
CPT/HCPCS: 36415; 76705-TC; 80053; 81003; 83690; 85025; 99282-25; J0131

== ENCOUNTER 2019-08-29 15:22 | Inpatient (IN) | payer OTHER ==
[2019-08-29] MEDS ORDERED: ELECTROLYTE-148 SOLN 1,000 ML IV SCH (17:00)
--- NOTE | 2019-08-29 17:10 | HP ---
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: Alzheimer's, CVA, Dementia, Migraine, Multiple Sclerosis, Peripheral Neuropathy, Parkinson's, Seizure, Syncope, TIA, Vertigo, Other Cardiovascular: No: AFIB, Aneurysm, Aortic Insufficiency, Aortic Stenosis, CAD, CHF, Deep Vein Thrombosis, HTN, Hyperlipdemia, SD, Mitral Insufficiency, Mitral Stenosis, Murmur, Pulmonary Hypertension, Other Pulmonary: Yes: Asthma Gastrointestinal: No: Ascites, Cancer, Constipation, Crohn's Disease, Diverticulitis, Diverticulosis, Esophageal Varices, Gastritis, GERD, GI Bleed, Hemorrhoids, Hiatal Hernia, Inflamatory Bowel Disease, Irritable Bowel Disease, Pancreatitis, Peptic Ulcer Disease, Ulcerative Colitis, Other Hepatobiliary: No: Cirrhosis, Cholelithiasis, Cholecystitis, Choledocholithiasis , Hepatitis A, Hepatitis B, Hepatitis C, Other Renal/: No: Renal Failure, Renal Inusuff, BPH, Cancer, Hematuria, Hemodialysis , Neurogenic Bladder, Renal Calculi, UTI, Other Reproductive: No: Ectopic , Endometriosis, Fibroids, PID, Polycystic Ovary Syndrome, Postmenopausal, Other Heme/Onc: No: Anemia, B12 Deficiency, Bleeding Disorder, Cancer, Current Chemotherapy, Current Radiation Therapy, Hemochromatosis, Hypercoaguable State, Myeloproliferative Synd, Sickle Cell Disease, Sickle Cell Trait, Thrombocytopenia, Other Infectious Disease: No: AIDS, C-Diff, Herpes Zoster, HIV, MRSA, STD's, Tuberculosis, VREF, Other Psych: No: Addictions, Anxiety, Bipolar, Depression, Panic, Psychosis, Schizophrenia, Other Musculoskeletal: No: Bursitis, Chronic low back pain, Hemiparesis, Hemiplegia, Osteoarthritis, Paraplegia, Other Rheumatology: No: Fibromyalgia, Gout, Lupus, Rheumatoid Arthritis, Sarcoidosis, Vasculitis, Other ENT: No: Allergic Rhinitis, Sinusitis, Other Endocrine: No: Lyle's Disease, Swengel's Disease, Diabetes Insipidus, Diabetes Mellitus, Hyperparathyroidism, Hyperthyroidism, Hypothyroidism, Osteopenia, SIADH, Other Dermatology: No: Basal Cell, Cellulitis, Eczema, Melanoma, Psoriasis, Squamous Cell, Other - Past Surgical History Past Surgical History: Yes: None Hx Myomectomy: No Hx Transabdominal Cerclage: No Additional Surgical History: rhinoplasty - Smoking History Smoking history: Never smoked Have you smoked in the past 12 months: No - Alcohol/Substance Use Hx Alcohol Use: No History of Substance Use: reports: None - Social History History of Recent Travel: No Home Medications - Allergies Allergies/Adverse Reactions: Allergies Allergy/AdvReac Type Severity Reaction Status Date / Time No Known Drug Allergies Allergy Verified 08/29/19 17:03 - Home Medications Home Medications: Ambulatory Orders Prenat 115/Iron Fum/Folic/Dss [ 19 Tablet] 1 each PO DAILY 08/29/19 Family Medical History Family History: Unremarkable Review of Systems - Review of Systems Constitutional: denies: No Symptoms, Chills, Diaphoresis, Fever, Lethargy, Loss of Appetite, Malaise, Night Sweats, Unintentional Wgt. Loss, Weakness, Other Eyes: denies: No Symptoms, Blind Spots, Blurred Vision, Double Vision, Eye Pain , Floaters, Photophobia, Recent Change in Vision, Other HENT: denies: No Symptoms, Difficult Swallowing, Ear Discharge, Ear Pain, Epistaxis, Gingival Bleeding, Hearing Loss, Mouth Swelling, Nasal Congestion, Ocular Prosthesis, Throat Pain, Toothache, Ringing in Ears, Other Neck: denies: No Symptoms, Decreased ROM, Lumps, Pain on Movement, Stiffness, Swollen Glands, Tenderness, Other Cardiovascular: denies: No Symptoms, Chest Pain, Edema, Palpitations, Shortness of Breath, Other Respiratory: denies: No Symptoms, Cough, Exercise Intolerance, Hemoptysis, Orthopnea, PND, Snoring, SOB, SOB on Exertion, Wheezing, Other Gastrointestinal: denies: No Symptoms, Abdominal Pain, Bloating, Constipation, Diarrhea, Dysphagia, Indigestion, Melena, Nausea, Rectal Bleeding, Vomiting, Vomiting Blood, Other Genitourinary: denies: No Symptoms, Burning, Discharge, Dysuria, Flank Pain, Frequency, Hematuria, Incontinence, Lesions, Menses, Pain, Testicular Mass, Testicular Pain, Testicular Swelling, Urgency, Vaginal Bleeding, Other Breasts: denies: No Symptoms Reported, See HPI, Breast Implants, Discharge from Nipple, Lumps, Pain, Skin Changes, Other Musculoskeletal: denies: No Symptoms, Back Pain, Crepitus, Decreased ROM, Extremity Pain, Joint Pain, Joint Swelling, Muscle Pain, Muscle Cramps, Muscle Weakness, Other Integumentary: denies: No Symptoms, Blister, Bruising, Change in Color, Eczema, Erythema, Incision, Lesions, Lump, Pallor, Pruritis, Rash, Wound, Other Neurological: denies: No Symptoms, Change in LOC, Change in Speech, Confusion, Dizziness, Headache, Incoordination, Numbness, Parasthesia, Pre-Existing Deficit , Seizure, Syncope, Tremors, Unsteady Gait, Weakness, Other Endocrine: denies: No Symptoms, Excessive Sweating, Flushing, Increased Hunger, Increased Thirst, Intolerance to Cold, Intolerance to Heat, Unexplained Weight Gain, Unexplained Weight Loss, Other Hematology/Lymphatic: denies: No Symptoms, Easily Bruised, Excessive Bleeding, Swollen Glands, Other Psychiatric: denies: No Symptoms, Altered Sleep Pattern, Anxiety, Depression, Hallucinations, Panic, Paranoia, Suicidal, Other Physical Exam - Maternity Vital Signs: reports ENL as per nursing Constitutional: Yes: Well Nourished Eyes: Yes: WNL HENT: Yes: Atraumatic Neck: Yes: Supple Cardiovascular: Yes: Regular Rate and Rhythm Breast(s): Yes: Other (deferred) - Abdominal Exam/OB Number of Fetuses: Single Presentation: Vertex Contractions: Yes Regularity: Regular Intensity: Moderate Monitor Mode: External Heart Rate (range): 145 Category: I Accelerations: Uniform Decelerations: None - Vaginal Exam/OB Vaginal Bleediing: No Speculum Exam: No Dilatation (cm): 6 Effacement (%): 60 Amniotic Membrane Status: Intact Presentation: Vertex/Position Station: -3 - Physical Exam Musculoskeletal: Yes: WNL Extremities: Yes: WNL Edema: No Edema: LLE: Trace, RLE: Trace Integumentary: Yes: WNL Deep Tendon Reflex Grade: Normal +2 ...Motor Strength: WNL Psychiatric: Yes: Alert, Oriented - Labs Lab Results: ordered Imaging - Results Ultrasound: Report Reviewed Problem List - Problems (1) Code(s): Z34.90 - ENCNTR FOR SUPRVSN OF NORMAL , UNSP, UNSP TRIMESTER Qualifiers: Weeks of gestation: 38 weeks Qualified Code(s): Z3A.38 - 38 weeks gestation of Assessment/Plan 29 y/o @ 38.5wks, active labor, FHT is reactive, GBS negative, OB summary reviewed. -Admit -expectant management
[2019-08-29 17:32] VITALS: BMI 27.8
[2019-08-29 18:59] LABS: BASO % 0.2 % (0-2.0); EOS % 0.6 % (0-4.5); HEMATOCRIT 38.8 % (32.4-45.2); HEMOGLOBIN 13.2 GM/dL (10.7-15.3); LYMPH % 26.3 % (8-40); MCH 28.4 pg (25.7-33.7); MCHC 33.9 g/dl (32.0-36.0); MEAN CELL VOLUME 83.8 fl (80-96); MEAN PLT VOLUME 10.1 fl (7.5-11.1); MONO % 7.5 % (3.8-10.2); NEUT % 65.4 % (42.8-82.8); PLATELET COUNT 191 K/MM3 (134-434); RBC 4.63 M/mm3 (3.60-5.2); RDW 14.3 % (11.6-15.6)
[2019-08-29 19:22] LABS: BLOOD UREA NITROGEN 6.2 mg/dL (7-18); CALCIUM 9.3 mg/dL (8.5-10.1); CREATININE 0.8 mg/dL (0.55-1.3); POTASSIUM 3.9 mmol/L (3.5-5.1)
[2019-08-29 19:23] LABS: INR 0.9 (0.83-1.09); PROTHROMBIN TIME (PATIENT) 10.6 SEC (9.7-13.0)
[2019-08-29 19:25] LABS: ACTIVATED PTT 27.1 SECONDS (25.2-36.5)
[2019-08-29] MEDS ORDERED: BUTORPHANOL TARTRATE 1 MG/ML VIAL ONE ×2 (19:47)
[2019-08-29] MEDS ORDERED: PROMETHAZINE HCL 25 MG/1 ML VIAL ONE (19:47)
[2019-08-29] MEDS ORDERED: OXYTOCIN 20 UNITS in 0.9% NS 20 UNIT/1,000 ML INFUS.BAG IV ONE (21:05)
[2019-08-29] MEDS ORDERED: OXYTOCIN 30 UNITS in 0.9% NS 30 UNIT/500 ML INFUS.BAG IVPB ONE (21:05)
--- NOTE | 2019-08-29 21:07 | PN ---
Ante-Partal Exam - Subjective Subjective: patient feeling comfortable after IV pain control Vital Signs: Vital Signs Temperature 98.4 F 08/29/19 18:00 Pulse Rate 77 08/29/19 20:00 Respiratory Rate 20 08/29/19 20:00 Blood Pressure 132/80 08/29/19 20:00 O2 Sat by Pulse Oximetry (%) Bleeding: No Headache: No Visual changes: No Right upper quadrant pain: No - Contractions Contractions: Yes Regularity: Irregular Intensity: Mild/Mod Monitor Mode: External - Exam during Labor Heart Rate: 125 Variability: Moderate Category: I Monitor Accelerations: Present Monitor Decelerations: None Exam: Vaginal Dilatation (cm): 7 Effacement (%): 70 Amniotic Membrane Status: Ruptured Amniotic Fluid: Meconium Stained (light) Presentation: Vertex Station: -3 Remarks: asynclitic, internal digital rotation attempted - Assessment/Plan Assessment/Plan: 29 y/o @ 38.5wks, protracted labor, FHt is reassuring, S/P AROm with light mec, asynclitic, inadequate contractions -Start pitocin
[2019-08-29] MEDS ORDERED: OXYTOCIN 30 UNITS in 0.9% NS 30 UNIT/500 ML INFUS.BAG IVPB SCH (21:15)
[2019-08-29] MEDS ORDERED: PROMETHAZINE HCL 25 MG/1 ML VIAL IVPB ONE (21:45)
[2019-08-29] MEDS ORDERED: BUTORPHANOL TARTRATE 1 MG/ML VIAL IVPUSH ONE (21:45)
[2019-08-30] MEDS ORDERED: LIDOCAINE HCL 1% PRESERVATIVE FREE - 30ML VIAL ONE (00:34)
--- NOTE | 2019-08-30 00:55 | PN ---
Delivery - Delivery Vaginal Delivery: No Problems Type of Anesthesia: Local Episiotomy/Laceration: 1st degree EBL (cc): 250 Delivery, Single - Stages of Labor Placenta: Yes: Spontaneous - Condition of Director Of Casino/Order Schedule Clerk Present: No Infant Gender: Male Position: Left, OA - [place] Feeding Plan Initial Plan: Elected not to breastfeed exclusively throughout hospitalization Remarks - Remarks Remarks: Infant's head delivered with maternal expulsive efforts, RUDOLPH. Loose cord around the body x 1 and removed following uncomplicated shoulder delivery. Cord clamped after delay and samples for gases and blood obtained. Placenta delivered spontaneously and intact. Laceration repaired with 3.0 polysorb in standard fashion. Excellent reapproximation and hemostasis noted. Sponge/ instrument count correct x 2 and fundus is firm
[2019-08-30] MEDS ORDERED: BENZOCAINE 20% 57 GM BOTTLE TP PRN (00:56)
[2019-08-30] MEDS ORDERED: WITCH HAZEL 50% (TUCKS) 40 PAD/JAR PAD TP PRN (00:56)
[2019-08-30] MEDS ORDERED: BENZOCAINE 28 GM HEMORRHOIDAL OINTMENT TP PRN (00:56)
[2019-08-30] MEDS ORDERED: OXYTOCIN 20 UNITS in 0.9% NS 20 UNIT/1,000 ML INFUS.BAG IV SCH (01:00)
[2019-08-30] MEDS ORDERED: OXYTOCIN 20 UNITS in 0.9% NS 20 UNIT/1,000 ML INFUS.BAG IV ONE (04:58)
[2019-08-30] MEDS: OXYTOCIN 20 UNITS in 0.9% NS 20 UNIT/1,000 ML INFUS.BAG IV SCH ×2 (05:00→13:20)
[2019-08-30] MEDS: ACETAMINOPHEN 325 MG TABLET (FP) PO PRN ×2 (13:53→20:45)
[2019-08-30] MEDS: IBUPROFEN 600 MG TABLET (FP) PO PRN ×2 (13:53→20:44)
--- NOTE | 2019-08-31 07:22 | PN ---
Progress Note (short form) - Note Progress Note: ppd 1 s/p , doing well, no active vaginal bleeding, voids ok CBC, BMP 08/29/19 18:00 08/29/19 18:00 Last Vital Signs Temp Pulse Resp BP Pulse Ox 97.5 F L 87 18 119/64 100 08/30/19 22:00 08/30/19 22:00 08/30/19 22:00 08/30/19 22:00 08/30/19 02:00 abdomen soft, no distension, no cva uterus firm, non tender lochia mild no calf tenderness plan ambulate, cbc , for d/c home in am
[2019-08-31 09:10] LABS: EOS % 2.5 % (0-4.5); HEMOGLOBIN 10.2 GM/dL (10.7-15.3); LYMPH % 37.3 % (8-40); MCH 28.6 pg (25.7-33.7); MCHC 34.1 g/dl (32.0-36.0); MEAN PLT VOLUME 9.6 fl (7.5-11.1); MONO % 6.7 % (3.8-10.2); PLATELET COUNT 146 K/MM3 (134-434); RBC 3.58 M/mm3 (3.60-5.2); RDW 14.6 % (11.6-15.6); WHITE BLOOD COUNT 6.1 K/mm3 (4.0-10.0)
[2019-08-31 09:11] LABS: BASO % 0.5 % (0-2.0)
[2019-08-31] MEDS: ACETAMINOPHEN 325 MG TABLET (FP) PO PRN ×2 (09:33→20:12)
[2019-08-31] MEDS: IBUPROFEN 600 MG TABLET (FP) PO PRN ×2 (09:33→20:12)
[2019-08-31] MEDS ORDERED: DIPHTH,PERTUSS(ACELL),TET 0.5 ML DISP.SYRIN IM ONE (10:00)
[2019-08-31] MEDS ORDERED: FLU VACC QS2019-20(6MOS UP)/PF 60 MCG/0.5 ML SYRINGE IM ONE (10:00)
[2019-08-31] MEDS ORDERED: FLU VACCINE QUAD 60 MCG/0.5 ML (MDV 19-20) IM ONE (10:00)
[2019-08-31] MEDS ORDERED: SENNOSIDES/DOCUSATE COMBO (SENNA PLUS) TABLET (UD) PO PRN (22:00)
--- NOTE | 2019-09-01 07:27 | DS ---
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 Signs: Vital Signs Temperature 98.5 F 08/31/19 22:00 Pulse Rate 81 08/31/19 22:00 Respiratory Rate 19 08/31/19 22:00 Blood Pressure 119/72 08/31/19 22:00 O2 Sat by Pulse Oximetry (%) 100 08/30/19 02:00 Constitutional: Yes: Well Nourished Eyes: Yes: Conjunctiva Clear HENT: Yes: Atraumatic Neck: Yes: Supple Cardiovascular: Yes: Regular Rate and Rhythm Respiratory: Yes: Regular Gastrointestinal: Yes: Normal Bowel Sounds Pelvis: Yes: WNL External Genitalia: Yes: Normal Vaginal Exam: Yes: Normal Cervix: Yes: Normal Uterus: Yes: Firm ....Post : Yes: Uterus firm, Moderate lochia serosa Breast(s): Yes: WNL Musculoskeletal: Yes: WNL Extremities: Yes: WNL Neurological: Yes: Alert, Oriented ...Motor Strength: WNL Psychiatric: Yes: Alert, Oriented Labs: CBC, BMP 08/31/19 07:28 08/29/19 18:00 Delivery - Delivery Vaginal Delivery: No Problems Type of Anesthesia: Local Episiotomy/Laceration: 1st degree EBL (cc): 250 Delivery, Single - Stages of Labor Date 1st Stage Initiatied: 08/29/19 Time 1st Stage Initiated: 12:00 Date 2nd Stage Initiated: 08/30/19 Time 2nd Stage Initiated: 00:00 Date of Delivery: 08/30/19 Time of Delivery: 00:29 Time Placenta Delivered: 00:37 Placenta: Yes: Spontaneous - 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 Gender: Male Weight: 8 lb 6 oz Position: Left, OA Total Hours ROM (Hrs/Mins): 3 hours 37 minutes - 1 Minute Total Score: 9 5 Minutes Total Score: 9 - Feeding Plan Initial Plan: Elected not to breastfeed exclusively throughout hospitalization Discharge Summary Problems reviewed: Yes Reason For Visit: ADMIT FOR LABOR Current Active Problems (Acute) Procedures: Principal: Normal vaginal delivery Hospital Course: Routine care Health Concerns: None Plan of Treatment: Analgesia as needed F/U in clinic in 6 weeks Goals: Resume normal activities in 6 weeks Condition: Good - Instructions Diet, Activity, Other Instructions: Regular diet No douching, no sexual intercourse x 6 weeks F/U in clinic in 6 weeks Disposition: HOME - Home Medications Comprehensive Discharge Medication List: Ambulatory Orders Prenat 115/Iron Fum/Folic/Dss [ 19 Tablet] 1 each PO DAILY 08/29/19
[2019-09-01 07:51] VITALS: BP 126/75; PULSE 83; TEMP 98.2
[2019-09-01] MEDS: IBUPROFEN 600 MG TABLET (FP) PO PRN (08:30)
[2019-09-01] MEDS: ACETAMINOPHEN 325 MG TABLET (FP) PO PRN (08:31)
== END 2019-09-01 14:20 | disposition home or self-care (01) | DRG 560 ==
LOC: JLDR 15:22 → J3W 08-30 13:25
PROVIDERS: ADMIT Student in an Organized Health Care Education/Training Program; ATTEND Student in an Organized Health Care Education/Training Program
PROC: 10E0XZZ Delivery of Products of Conception, External Approach (ICD-10-PCS; principal; 2019-08-30)
PROC: 0W8NXZZ Division of Female Perineum, External Approach (ICD-10-PCS; 2019-08-30)
PROC: 0HQ9XZZ Repair Perineum Skin, External Approach (ICD-10-PCS; 2019-08-30)
DX: O70.0 First degree perineal laceration during delivery (principal); Z3A.38 38 weeks gestation of pregnancy; Z37.0 Single live birth
CPT/HCPCS: 36415; 36600; 59409; 80048; 82803; 85025; 85610; 85730; 86593; 86850; 86900; 86901; 90686; 90715

== ENCOUNTER 2022-04-10 11:48 | Emergency (ER) | payer OTHER ==
[2022-04-10 12:14] VITALS: BMI 32.3
[2022-04-10] MEDS ORDERED: SODIUM CHLORIDE 0.9% 500 ML INFUS.BAG IV ONE (12:49)
[2022-04-10] MEDS ORDERED: DEXAMETHASONE LIQUID 0.5 MG/5 ML PO ONE (12:50)
[2022-04-10] MEDS ORDERED: ACETAMINOPHEN 500 MG TABLET (FP) PO ONE (13:03)
[2022-04-10] MEDS ORDERED: DEXAMETHASONE SOD PHOSPHATE 10 MG/1 ML VIAL ONE (13:05)
[2022-04-10] MEDS ORDERED: ACETAMINOPHEN 500 MG TABLET (FP) ONE (13:05)
[2022-04-10 13:18] LABS: BASO % 0.4 % (0-2.0); HEMATOCRIT 31.2 % (32.4-45.2); HEMOGLOBIN 10.6 GM/dL (10.7-15.3); LYMPH % 14.3 % (8-40); MCH 27.4 pg (25.7-33.7); MCHC 33.8 g/dl (32.0-36.0); MEAN CELL VOLUME 80.9 fl (80-96); MEAN PLT VOLUME 7.9 fl (7.5-11.1); MONO % 5.7 % (3.8-10.2); NEUT % 78.6 % (42.8-82.8); PLATELET COUNT 268 10^3/uL (134-434); RBC 3.86 M/mm3 (3.60-5.2); RDW 12.8 % (11.6-15.6); WHITE BLOOD COUNT 8.6 K/mm3 (4.0-10.0)
[2022-04-10 13:28] LABS: EPI CELLS 13 /uL (0-25.1); HYALINE CASTS 0 /uL (0-3.1); PH,URINE 7.5 (5.0-8.0); URINE APPEARANCE CLOUDY; URINE BACTERIA 23 /uL (0-1359); URINE BILIRUBIN NEGATIVE (NEGATIVE); URINE COLOR RED; URINE GLUCOSE (UA) NEGATIVE (NEGATIVE); URINE KETONE NEGATIVE (NEGATIVE); URINE LEUK ESTERASE 2+ (NEGATIVE); URINE NITRITE NEGATIVE (NEGATIVE); URINE PROTEIN 1+ (NEGATIVE); URINE RBC 9666 /uL (0-23.9); URINE WBC 35 /uL (0-25.8)
[2022-04-10 13:41] LABS: CHLORIDE 102 mmol/L (98-107); SODIUM 139 mmol/L (136-145)
[2022-04-10 13:42] LABS: CALCIUM 9.3 mg/dL (8.5-10.1)
[2022-04-10 13:43] LABS: ANION GAP 7 MMOL/L (8-16); BLOOD UREA NITROGEN 7.3 mg/dL (7-18); CO2 29 mmol/L (21-32); GLUCOSE,RANDOM 88 mg/dL (74-106)
[2022-04-10 13:46] LABS: CREATININE 0.8 mg/dL (0.55-1.3); SGOT/AST 17 U/L (15-37); SGPT/ALT 20 U/L (13-61)
[2022-04-10 13:48] LABS: BILIRUBIN,TOTAL 0.5 mg/dL (0.2-1); TOT PROT 7.9 g/dl (6.4-8.2)
[2022-04-10 13:49] LABS: ALK PHOS 79 U/L (45-117)
[2022-04-10 14:14] LABS: INR 1.11 (0.83-1.09); PROTHROMBIN TIME (PATIENT) 12.8 SEC (9.7-13.0)
[2022-04-10 16:12] VITALS: BP 124/70; PULSE 83; TEMP 98.1
== END 2022-04-10 16:56 | disposition home or self-care (01) ==
LOC: JER 11:48
DX: N93.8 Other specified abnormal uterine and vaginal bleeding (principal)
CPT/HCPCS: 0241U-QW; 36415; 71046-TC-FY; 71275-TC; 80053; 81003; 84484; 84702; 85025; 85379; 85610; 86850; 86900; 86901; 93005; 93010; 99285-25; Q9967